=== PATIENT | female | born 1960 ===

== ENCOUNTER 2018-04-03 09:36 | Emergency (ER) | payer OTHER ==
[2018-04-03 09:53] VITALS: BMI 31.8
[2018-04-03] MEDS ORDERED: Albuterol 0.083% Inhal Sol (2.5 mg/3 mL) UD INH ONE (10:41)
--- NOTE | 2018-04-03 10:51 | ED PDOC ---
HPI: SOB/CHF/COPD History Per: Patient History/Exam Limitations: language barrier Onset/Duration Of Symptoms: Hrs Current Symptoms Are (Timing): Still Present Associated Symptoms: denies: Fever, Chills, Sweating, Chest Pain <Anais Rahman - Last Filed: 04/03/18 13:00> <Brenda Carmona Y - Last Filed: 04/03/18 17:34> Time Seen by Provider: 04/03/18 09:41 Chief Complaint (Nursing): Shortness Of Breath Additional Complaint(s): CC: SOB HPI: 57 YO Female with PMHx of reflex sympathetic dystrophy presents to [facility] ED for dyspnea. Pt states that her SOB started last night after she had a confrontation with her neighbor about her noisy nephew who was autistic. Pt states that after the episode, she became very SOB, had a hard time falling asleep last night and continues to have trouble breathing now. Denies chest pain , palpitations, cough, n/v/d/c fevers and chills. Additionally, pt endorsing hx of chronic leg pain. Persistent pain after surgery , associated redness and occasional mild swelling of the L leg, on/off since September of this year. Never used a inhaler in the past. [employer] used for translation [id number] PMD: none, recently moved from [facility] where she frequents multiple hospitals PMHx: reflex sympathetic dystrophy SurgHx: b/l knee repair SHx: denies ETOH, smoking and illicit drug use FHx: hx of Colon CA in father and Bone CA in aunt Meds: lyrica PO daily, hx of plavix use (has not been using it for months) Allergies: asa and cefzolin generalized rash (Anais Rahman) Supervising Attending Note - Supervising Attending Note The Documented history was done by the: Physician Moderate Needs Teacher The documented physical exam was done by the: Physician Moderate Needs Teacher The documented procedures were done by the: Physician Moderate Needs Teacher - Attestation: I have personally seen and examined this patient.: Yes I have fully participated in the care of the patient.: Yes I have reviewed all pertinent clinical information, including history, physical exam and plan: Yes <Brenda Carmona Y - Last Filed: 04/03/18 17:34> Past Medical History - Surgical History Other surgeries: other: b/l knee repair - Family History Family History: States: Other Other Family History: Bone and colon CA - Social History Current smoker - smoking cessation education provided: No Alcohol: None Drugs: Denies <Anais Rahman - Last Filed: 04/03/18 13:00> <Brenda Carmona Y - Last Filed: 04/03/18 17:34> Vital Signs: Last Vital Signs Temp 98.1 F 04/03/18 12:48 Pulse 75 04/03/18 12:48 Resp 16 04/03/18 12:48 BP 135/80 04/03/18 12:48 Pulse Ox 97 04/03/18 13:01 - Allergies Allergies/Adverse Reactions: Allergies Allergy/AdvReac Type Severity Reaction Status Date / Time aspirin Allergy REDNESS Verified 04/03/18 10:06 cefazolin Allergy ITCHING Verified 04/03/18 10:06 Curb-65 Severity Score - CURB-65 Severity Score Confusion: No Bun >19mg/dl (>7mmol/L): No Respiratory Rate greater than/equal to 30: No Systolic BP <90 or Diastolic BP less than/equal 60mmHg: No Age >64: No Curb-65 Score: 0 Percentage 30-day mortality: 0.6% <Anais Rahman - Last Filed: 04/03/18 13:00> Wells Criteria for PE - Wells Criteria for Pulmonary Embolism Clinical Signs and Symptoms of DVT: No P.E is #1 Diagnosis, or Equally Likely: No Heart Rate >100: No Immobilization at least 3 days;Surgery previous 4 weeks: No Previous, objectively diagnosed PE or DVT: No Hemoptysis: No Malignancy w/treatment within 6 months, or palliative: No Total Score: 0 <Anais Rahman Last Filed: 04/03/18 13:00> Review of Systems Constitutional: Negative for: Fever, Chills, Weakness Cardiovascular: Negative for: Chest Pain, Palpitations Respiratory: Positive for: Shortness of Breath. Negative for: Cough Gastrointestinal: Negative for: Nausea, Vomiting, Abdominal Pain Genitourinary Female: Negative for: Dysuria, Hematuria Musculoskeletal: Positive for: Leg Pain (R leg pain, chronic per pt) <Anais Rahman Last Filed: 04/03/18 13:00> Physical Exam - Physical Exam Appears: Positive for: No Acute Distress (breathing comfortably ) Skin: Positive for: Normal Color. Negative for: Diaphoresis ENT: Positive for: Nasal Congestion Cardiovascular/Chest: Positive for: Regular Rate, Rhythm. Negative for: Murmur Respiratory: Positive for: Normal Breath Sounds. Negative for: Crackles, Rales , Wheezing Gastrointestinal/Abdominal: Positive for: Normal Exam, Soft. Negative for: Tenderness Back: Positive for: Normal Inspection. Negative for: L CVA Tenderness, R CVA Tenderness Extremity: Positive for: Normal ROM, Tenderness (+tenderness to palpation of the lateral L leg, area of erythema, normal skin temp, old surgery scars noted, well healed.). Negative for: Pedal Edema, Calf Tenderness Neurologic/Psych: Positive for: Alert, rheumatology nurse II-XII, Oriented <Anais Rahamn - Last Filed: 04/03/18 13:00> - Laboratory Results Result Diagrams: 04/03/18 11:00 04/03/18 10:56 - ECG O2 Sat by Pulse Oximetry: 97 <Anais Rahman - Last Filed: 04/03/18 13:00> - Laboratory Results Result Diagrams: 04/03/18 11:00 04/03/18 10:56 <Brenda Carmona Y - Last Filed: 04/03/18 17:34> - Progress ED Course And Treament: 57 YO with dyspnea. VS stable breathing comfortably in room air. -cbc, bmp -CXR -XR of the L tib fib -1x duonab inh 11:58--pt seen and reevaluated Refused XR of the Leg, my leg has been the same for months, my other doctor told me I don't need any Xray's or treatment for it. States that her dyspnea has improved after breathing treatment Blood work and CXR reviewed with patient, normal Pt encouraged to get a PMD since she moved to [place] so she can follow up for her chronic conditions. Information provided for [facility] Will d/c pt to home with follow up with PMD of choice ER precautions reviewed with patient. Pt encouraged to take her PO meds as prescribed Pt agrees with plan (Anais Rahman) Disposition - Disposition Disposition Time: 13:01 <Anais Rahman - Last Filed: 04/03/18 13:00> <Brenda Carmona - Last Filed: 04/03/18 17:34> - Clinical Impression Clinical Impression: Nasal congestion - Disposition Referrals: [facility] [Outside] [facility] [Outside] Condition: IMPROVED Additional Instructions: follow up with the clinic within one week return to the ED with any worsening or concerning symptoms Instructions: Cough, Runny Nose, and the Common Cold (DC) Forms: [employer] (Surinamese)
[2018-04-03] MEDS ORDERED: Albuterol 0.083% Inhal Sol (2.5 mg/3 mL) UD ONE (11:01)
[2018-04-03 11:16] LABS: BASO % 0.5 % (0.0-2.0); EOS # 0.1 K/uL (0.0-0.7); EOS % 1.1 % (0.0-4.0); HEMOGLOBIN 12.4 g/dL (12.0-16.0); LYMPH # 1.6 K/uL (1.0-4.3); LYMPH % 28.2 % (20.0-40.0); MEAN CELL VOLUME 97.1 fl (81.0-99.0); MEAN CORPUSCULAR HEMOGLOBIN 32.6 pg (27.0-31.0); MEAN CORPUSCULAR HGB CONC 33.5 g/dL (33.0-37.0); MEAN PLATELET VOLUME 10.8 fl (7.2-11.7); MONO # 0.6 K/uL (0.0-0.8); MONO % 9.9 % (0.0-10.0); NEUT # 3.4 K/uL (1.8-7.0); NEUT % 60.3 % (50.0-75.0); NRBC % 0.2 % (0.0-0.0); RBC 3.79 Mil/uL (3.80-5.20); RED CELL DISTRIBUTION WIDTH 13.5 % (11.5-14.5); WHITE BLOOD COUNT 5.7 K/uL (4.8-10.8)
--- NOTE | 2018-04-03 11:19 | RAD ---
Date of service: 04/03/2018 HISTORY: Shortness of breath COMPARISON: No prior. FINDINGS: LUNGS: The lungs are well inflated and clear. PLEURA: No significant pleural effusion identified, no pneumothorax apparent. CARDIOVASCULAR: Normal. OSSEOUS STRUCTURES: No significant abnormalities. VISUALIZED UPPER ABDOMEN: Normal. OTHER FINDINGS: None. IMPRESSION: No active pulmonary disease.
[2018-04-03 11:34] LABS: ALB/GLOB RATIO 1.3 (1.0-2.1); ALBUMIN 3.9 g/dL (3.5-5.0); ALT/SGPT 23 U/L (9-52); AST/SGOT 30 U/L (14-36); BLOOD UREA NITROGEN 10 mg/dl (7-17); GFR NON-AFRICAN AMERICAN > 60
[2018-04-03 12:49] VITALS: BP 135/80; PULSE 75; RESP 16; TEMP 98.1
[2018-04-03 12:51] VITALS: O2SAT 97
== END 2018-04-03 12:56 | disposition home or self-care (01) ==
LOC: H.ER 09:36
DX: R09.81 Nasal congestion (principal); R06.02 Shortness of breath; G90.50 Complex regional pain syndrome I, unspecified; Z88.1 Allergy status to other antibiotic agents

== ENCOUNTER 2018-08-17 12:17 | Inpatient (IN) | payer MEDICAID, OTHER ==
[2018-08-17 12:17] VITALS: BMI 31.8
[2018-08-17 14:27] LABS: BASO % 0.2 % (0.0-2.0); EOS % 0.1 % (0.0-4.0); HEMOGLOBIN 12.9 g/dL (12.0-16.0); LYMPH # 0.9 K/uL (1.0-4.3); LYMPH % 12.5 % (20.0-40.0); MEAN CELL VOLUME 97.3 fl (81.0-99.0); MEAN CORPUSCULAR HEMOGLOBIN 31.7 pg (27.0-31.0); MEAN CORPUSCULAR HGB CONC 32.5 g/dL (33.0-37.0); MEAN PLATELET VOLUME 11.1 fl (7.2-11.7); MONO # 0.6 K/uL (0.0-0.8); NEUT # 5.7 K/uL (1.8-7.0); NEUT % 79.2 % (50.0-75.0); RBC 4.07 Mil/uL (3.80-5.20); RED CELL DISTRIBUTION WIDTH 13.4 % (11.5-14.5); WHITE BLOOD COUNT 7.2 K/uL (4.8-10.8)
[2018-08-17 14:37] LABS: ALB/GLOB RATIO 1.1 (1.0-2.1); ALBUMIN 4.2 g/dL (3.5-5.0); ALT/SGPT 296 U/L (9-52); AST/SGOT 517 U/L (14-36); BLOOD UREA NITROGEN 10 mg/dl (7-17); GFR NON-AFRICAN AMERICAN > 60
--- NOTE | 2018-08-17 14:47 | ED PDOC ---
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 Patient states she has had the pain intermittently x6 months, and with this flare, she reports 2 episodes of associated non-bloody non-bilious vomiting. This morning patient reports the pain began to radiate her back and was described as a sharp 9/10 pain. She denies taking medications prior to arrival. Patient denies fever, diarrhea, urinary symptoms, hematuria, flank pain, chest pain, shortness of breath, or cough. pmd: none Past Medical History Reviewed: Historical Data, Nursing Documentation, Vital Signs Vital Signs: Last Vital Signs Temp 97.6 F 08/17/18 12:42 Pulse 71 08/17/18 12:42 Resp 16 08/17/18 12:42 BP 140/76 08/17/18 12:42 Pulse Ox 99 08/17/18 12:42 - Medical History Other PMH: Unspecified Dystrophy - Surgical History Other surgeries: Left leg surgery (13 y/o) - Family History Family History: States: Unknown Family Hx - Social History Current smoker - smoking cessation education provided: No Alcohol: None - Home Medications Home Medications: Ambulatory Orders Medication Instructions Recorded Clopidogrel [Plavix] 75 mg PO DAILY 08/17/18 Pregabalin [Lyrica] 75 mg PO BID 08/17/18 RX: Pamabrom [Diuretic Softgel] 50 mg PO Q6 PRN 08/17/18 Ciprofloxacin HCl [Cipro] 500 mg PO Q12H 10 Days #20 tab 08/18/18 - Allergies Allergies/Adverse Reactions: Allergies Allergy/AdvReac Type Severity Reaction Status Date / Time aspirin Allergy REDNESS Verified 04/03/18 10:06 cefazolin Allergy ITCHING Verified 04/03/18 10:06 Review of Systems ROS Statement: Except As Marked, All Systems Reviewed And Found Negative Constitutional: Negative for: Fever Cardiovascular: Negative for: Chest Pain Respiratory: Negative for: Cough, Shortness of Breath Gastrointestinal: Positive for: Vomiting, Abdominal Pain. Negative for: Diarrhea Genitourinary Female: Negative for: Dysuria, Frequency, Incontinence, Hematuria Musculoskeletal: Positive for: Back Pain Physical Exam - Reviewed Nursing Documentation Reviewed: Yes Vital Signs Reviewed: Yes - Physical Exam Comments: GENERAL APPEARANCE: Patient is awake, alert, oriented x 3, in no distress. SKIN: Warm, dry; (-) cyanosis. EYES: (-) conjunctival pallor, (-) scleral icterus. ENMT: Mucous membranes moist. NECK: Supple, FROM CHEST AND RESPIRATORY: (-) rales, (-) rhonchi, (-) wheezes; breath sounds equal bilaterally. Respirations nonlabored. HEART AND CARDIOVASCULAR: (-) irregularity ABDOMEN AND GI: Soft (-) distention. Bowel sounds active x4; (+) mild tenderness in epigastric region (-) guarding, (-) rebound, (-) palpable masses, (-) CVA tenderness. NEURO AND PSYCH: Mental status as above; (-) focal findings. Gait: steady with walker. Speech: clear. (-) facial asymmetry - Laboratory Results Result Diagrams: 08/18/18 05:55 08/18/18 05:55 Lab Results: Total Bilirubin 2.2 mg/dl (0.2-1.3) H 08/17/18 14:15 AST 517 U/L (14-36) H D 08/17/18 14:15 ALT 296 U/L (9-52) H D 08/17/18 14:15 Alkaline Phosphatase 238 U/L (38-126) H D 08/17/18 14:15 Total Protein 8.0 G/DL (6.3-8.2) 08/17/18 14:15 Albumin 4.2 g/dL (3.5-5.0) 08/17/18 14:15 Globulin 3.8 gm/dL (2.2-3.9) 08/17/18 14:15 Albumin/Globulin Ratio 1.1 (1.0-2.1) 08/17/18 14:15 Urine dip results: Positive for: Leukocyte Esterase (small). Negative for: Blood, Nitrate, Ketones, Glucose, Bilirubin, Protein - ECG O2 Sat by Pulse Oximetry: 99 (RA) Pulse Ox Interpretation: Normal Medical Decision Making Medical Decision Making: Time: 13:45 Impression: Abdominal pain and vomiting Initial Plan: * CMP * Drug screen * Lipase * CBC w/ diff * Pepcid 20 mg * Acetaminophen 650 mg * Zofran 4 mg 1505 Patient sleeping comfortably on re-evaluation. No distress noted. 1600 Utox: negative CBC grossly unremarkable. CMP with elevation of LFTs. Lipase pending. Patient remains asleep comfortably in ED. 1620 Udip reviewed. U/A and U/C ordered. 165 Lipase: LDH, coag profile, and lactic acid ordered. U/S gallbladder ordered. 1L NS ordered. 1740 Patient in U/S. 184 US Abdomen report follows FINDINGS: LIVER: Within normal limits in size and echogenicity. No mass. GALLBLADDER: Small gallstones are present with evidence of mild thickening and edema of the gallbladder wall. COMMON BILE DUCT: Within normal limits in size. PANCREAS: The visualized pancreas appears within normal limits. The distal pancreas is obscured by bowel gas. RIGHT KIDNEY: Unremarkable. Normal renal contours. No renal mass or calculus. No hydronephrosis. IMPRESSION: Multiple small gallstones. Thickening and edema of the gallbladder wall suggested. Technically limited study. Close clinical correlation is advised. 1920 Case discussed with hospitalist, Dr Felix, who is agreeable to admission for pancreatitis and gallstones. Zosyn ordered. No elevation of lactic acid. (+) elevation of LDH Patient agreeable to admission. Daughter now at bedside. ED MD Riggins discussed case with Trina Vuong PA-C on behalf of Dr Rico, general surgery. ED MD Riggins discussed case Dr Brandon, GI fashion adviser. Scribe Attestation: Documented by Richard Calle, acting as a scribe for Dina Barcenas PA-C Provider Scribe Attestation: :All medical record entries made by the Scribe were at my direction and personally dictated by me. I have reviewed the chart and agree that the record accurately reflects my personal performance of the history, physical exam, medical decision making, and the department course for this patient. I have also personally directed, reviewed, and agree with the discharge instructions and disposition. Disposition - Clinical Impression Clinical Impression: Abdominal pain, Vomiting, Pancreatitis, Gallstones - Patient ED Disposition Is Patient to be Admitted: Yes Discussed With DrFelicitas: Carey Felix Doctor Will See Patient In The: Hospital Counseled Patient/Family Regarding: Studies Performed, Diagnosis - Disposition Disposition Time: 19:20 Condition: STABLE - Pt Status Changed To: Hospital Disposition Of: Inpatient - Admit Certification Admit to Inpatient:: After my assessment, the patient will require hospitalization for at least two midnights. This is because of the severity of symptoms shown, intensity of services needed, and/or the medical risk in this patient being treated as an outpatient. - POA Present On Arrival: None Results - Lab Results Lab Results: 08/17/18 08/17/18 08/17/18 17:26 17:26 17:26 WBC RBC Hgb Hct MCV MCH MCHC RDW Plt Count MPV Neut % (Auto) Lymph % (Auto) Sierra % (Auto) Eos % (Auto) Baso % (Auto) Neut # (Auto) Lymph # (Auto) Sierra # (Auto) Eos # (Auto) Baso # (Auto) PT 11.2 INR 1.0 APTT 31.4 Sodium Potassium Chloride Carbon Dioxide Anion Gap BUN Creatinine Est GFR ( Amer) Est GFR (Non-Af Amer) Random Glucose Lactic Acid 0.7 Calcium Total Bilirubin AST ALT Alkaline Phosphatase Lactate Dehydrogenase 1347 H Total Protein Albumin Globulin Albumin/Globulin Ratio Lipase 55990 H Urine Color Urine Clarity Urine pH Ur Specific [place] Urine Protein Urine Glucose (UA) Urine Ketones Urine Blood Urine Nitrate Urine Bilirubin Urine Urobilinogen Ur Leukocyte Esterase Urine RBC (Auto) Urine Microscopic WBC Ur Squamous Epith Cells Urine Bacteria Urine Opiates Screen Urine Methadone Screen Ur Barbiturates Screen Ur Phencyclidine Scrn Ur Amphetamines Screen U Benzodiazepines Scrn U Oth Cocaine Metabols U Cannabinoids Screen 08/17/18 08/17/18 08/17/18 17:10 14:49 14:15 WBC RBC Hgb Hct MCV MCH MCHC RDW Plt Count MPV Neut % (Auto) Lymph % (Auto) Sierra % (Auto) Eos % (Auto) Baso % (Auto) Neut # (Auto) Lymph # (Auto) Sierra # (Auto) Eos # (Auto) Baso # (Auto) PT INR APTT Sodium 136 Potassium 3.6 Chloride 101 Carbon Dioxide 26 Anion Gap 13 BUN 10 Creatinine 0.7 Est GFR ( Amer) > 60 Est GFR (Non-Af Amer) > 60 Random Glucose 102 Lactic Acid Calcium 9.0 Total Bilirubin 2.2 H AST 517 H D ALT 296 H D Alkaline Phosphatase 238 H D Lactate Dehydrogenase Total Protein 8.0 Albumin 4.2 Globulin 3.8 Albumin/Globulin Ratio 1.1 Lipase 70933 H Urine Color Yellow Urine Clarity Slighty-cloudy Urine pH 7.0 Ur Specific [place] < 1.005 Urine Protein Negative Urine Glucose (UA) Neg Urine Ketones Negative Urine Blood Small Urine Nitrate Negative Urine Bilirubin Negative Urine Urobilinogen 0.2-1.0 Ur Leukocyte Esterase Small Urine RBC (Auto) 4 H Urine Microscopic WBC 6 H Ur Squamous Epith Cells < 1 Urine Bacteria Rare Urine Opiates Screen Negative Urine Methadone Screen Negative Ur Barbiturates Screen Negative Ur Phencyclidine Scrn Negative Ur Amphetamines Screen Negative U Benzodiazepines Scrn Negative U Oth Cocaine Metabols Negative U Cannabinoids Screen Negative 08/17/18 14:15 WBC 7.2 RBC 4.07 Hgb 12.9 Hct 39.6 MCV 97.3 MCH 31.7 H MCHC 32.5 L RDW 13.4 Plt Count 184 MPV 11.1 Neut % (Auto) 79.2 H Lymph % (Auto) 12.5 L Sierra % (Auto) 8.0 Eos % (Auto) 0.1 Baso % (Auto) 0.2 Neut # (Auto) 5.7 Lymph # (Auto) 0.9 L Sierra # (Auto) 0.6 Eos # (Auto) 0.0 Baso # (Auto) 0.0 PT INR APTT Sodium Potassium Chloride Carbon Dioxide Anion Gap BUN Creatinine Est GFR ( Amer) Est GFR (Non-Af Amer) Random Glucose Lactic Acid Calcium Total Bilirubin AST ALT Alkaline Phosphatase Lactate Dehydrogenase Total Protein Albumin Globulin Albumin/Globulin Ratio Lipase Urine Color Urine Clarity Urine pH Ur Specific [place] Urine Protein Urine Glucose (UA) Urine Ketones Urine Blood Urine Nitrate Urine Bilirubin Urine Urobilinogen Ur Leukocyte Esterase Urine RBC (Auto) Urine Microscopic WBC Ur Squamous Epith Cells Urine Bacteria Urine Opiates Screen Urine Methadone Screen Ur Barbiturates Screen Ur Phencyclidine Scrn Ur Amphetamines Screen U Benzodiazepines Scrn U Oth Cocaine Metabols U Cannabinoids Screen
[2018-08-17 16:02] LABS: BARBITURATES, UR NEGATIVE (NEGATIVE); BENZODIAZEPINES, UR NEGATIVE (NEGATIVE); OPIATES, UR NEGATIVE (NEGATIVE); PHENCYCLIDINE, UR NEGATIVE (NEGATIVE)
[2018-08-17 16:38] LABS: LIPASE 19526 U/L (23-300)
[2018-08-17] MEDS ORDERED: Sodium Chloride 0.9% 1,000 ML IV STA (16:50)
[2018-08-17 17:30] LABS: SQUAMOUS EPITHIAL < 1 /hpf (0-5); URINE BACTERIA RARE (<OCC); URINE BILIRUBIN NEGATIVE (NEGATIVE); URINE BLOOD SMALL (NEGATIVE); URINE CLARITY SLIGHTY-CLOUDY (Clear); URINE COLOR YELLOW (YELLOW); URINE GLUCOSE (UA) NEG (NEGATIVE); URINE LEUKOCYTE ESTERASE SMALL Leu/uL (Negative); URINE PROTEIN NEGATIVE (NEGATIVE); URINE UROBILINOGEN 0.2-1.0 mg/dL (0.2-1.0)
[2018-08-17 18:06] LABS: PROTHROMBIN TIME 11.2 Seconds (9.8-13.1)
[2018-08-17 18:08] LABS: PARTIAL THROMBOPLASTIN TIME 31.4 Seconds (25.6-37.1)
[2018-08-17 18:24] LABS: LIPASE 10537 U/L (23-300)
[2018-08-17] MEDS ORDERED: Piperacillin/Tazobact 3.375 GM in Sodium Chloride 0.9% 100 ML IVPB STA (19:20)
[2018-08-17] MEDS ORDERED: Lactated Ringer's 1,000 ML IV STA (19:45)
[2018-08-17] MEDS ORDERED: Piperacillin/Tazobact 3.375 gm Inj IVPB ONE (19:48)
--- NOTE | 2018-08-17 20:41 | CP.PCM.HP ---
<William Ahuja - Last Filed: 08/17/18 20:56> History of Present Illness - History of Present Illness History of Present Illness: 57 y/o F with a PMHx of GERD presented to ED complaining of upper abdominal pain that began last night. Pain is described as sharp, 9/10 intensity, radiates nabila und abdomen bilaterally to back. Pt explains that pain started last night after eating rice and beans for dinner, then she felt nauseous, had a NBNB vomiting episode around 3 am which relieved the pain. Pt woke up this morning, ate crackers and pain exacerbated again and vomited again but with NO improvement of pain. No ill contacts and no eating outdoors. --Pt reports 3-4 similar episode over the past 6 months in which pain was exacerbated by food and relieved after NBNB vomiting. --Pt denies fever, chills, dizziness, cough, cehst pain, SOB, diarrhea, constipation or rash. PCP: Derick Booth/Dr Robe Smith Allergies: Aspirin and Cefazolin (Rash) Meds: Lyrica 75mg BID, Clopidogrel 75mg daily. -PMHx: GERD, left leg neuropathic pain/Complex Regional Pain Syndrome (diagnosed in [facility] a few years ago), Left lower leg DVT after immobilization s/p L ankle fracture. -PSHx: Bilateral tibia and fibular surgical correction, unspecified (?ORIF). Left ankle ORIF. -FHx: Father of Colon Cancer at age 73. Mother is alive and healthy. -SHx: Never smoker, no alcohol and no rec drugs. At ED: --Vital signs: WNL --CBC: unremarkable; CMP showed elevated bilirubin, increased AST/ALT, elevated Alk phos. --Serum LDH 1,347-high --Lipase 19,526-high, and to 10,537 3 hours after treatment. --US Abdomen: multiple small gallstones, thickening and edema of the gallbladder wall, pancreas WNL but distal pancreas was not visualized. Present on Admission - Present on Admission Any Indicators Present on Admission: Yes History of DVT/PE: Yes History of Uncontrolled Diabetes: No Urinary Catheter: No Decubitus Ulcer Present: No Review of Systems - Constitutional Constitutional: absent: Chills, Fever, Lethargy, Malaise - Cardiovascular Cardiovascular: absent: Chest Pain, Dyspnea, Orthopnea - Respiratory Respiratory: absent: Cough, Dyspnea, Hemoptysis - Gastrointestinal Gastrointestinal: Abdominal Pain, Nausea, Vomiting. absent: Constipation, Diarrhea, Hematemesis, Hematochezia Past Patient History - Past Social History Alcohol: None - NEUROLOGICAL Hx Neurological Disorder: Yes Other/Comment: Reflex sympathetic dystrophy - ENDOCRINE/METABOLIC Other/Comment: hypoglycemia - PSYCHIATRIC Hx Substance Use: No - SURGICAL HISTORY Hx Surgeries: Yes Hx Orthopedic Surgery: Yes (lt. leg) - ANESTHESIA Hx Anesthesia: Yes Hx Anesthesia Reactions: No Meds Allergies/Adverse Reactions: Allergies Allergy/AdvReac Type Severity Reaction Status Date / Time aspirin Allergy REDNESS Verified 04/03/18 10:06 cefazolin Allergy ITCHING Verified 04/03/18 10:06 Physical Exam - Constitutional Appears: No Acute Distress - Head Exam Head Exam: ATRAUMATIC, NORMAL INSPECTION - Eye Exam Eye Exam: EOMI - ENT Exam ENT Exam: Mucous Membranes Moist - Neck Exam Neck exam: Positive for: Full Rom, Normal Inspection - Respiratory Exam Respiratory Exam: NORMAL BREATHING PATTERN. absent: Rhonchi, Wheezes, Respiratory Distress - Cardiovascular Exam Cardiovascular Exam: REGULAR RHYTHM, +S1, +S2 - GI/Abdominal Exam GI & Abdominal Exam: Normal Bowel Sounds, Soft, Tenderness (epigastric and aaron- umbilical areas). absent: Distended, Guarding, Rebound, Rigid Additional comments: Negative Bell's after distraction - Extremities Exam Extremities exam: Positive for: full ROM, tenderness (on Left lower leg, superior and lateral to ankle. ), pedal pulses present. Negative for: calf tenderness, normal inspection (skin color changes on Left lower leg, possibly venous stasis. ), pedal edema Results - Vital Signs Recent Vital Signs: Last Vital Signs Temp 97.4 F L 08/17/18 20:05 Pulse 62 08/17/18 20:05 Resp 16 08/17/18 20:05 BP 142/85 08/17/18 20:05 Pulse Ox 95 08/17/18 20:05 - Labs Result Diagrams: 08/17/18 14:15 08/17/18 14:15 Labs: Laboratory Results - last 24 hr 08/17/18 08/17/18 08/17/18 14:15 14:15 14:49 WBC 7.2 RBC 4.07 Hgb 12.9 Hct 39.6 MCV 97.3 MCH 31.7 H MCHC 32.5 L RDW 13.4 Plt Count 184 MPV 11.1 Neut % (Auto) 79.2 H Lymph % (Auto) 12.5 L [place] % (Auto) 8.0 Eos % (Auto) 0.1 Baso % (Auto) 0.2 Neut # (Auto) 5.7 Lymph # (Auto) 0.9 L [place] # (Auto) 0.6 Eos # (Auto) 0.0 Baso # (Auto) 0.0 PT INR APTT Sodium 136 Potassium 3.6 Chloride 101 Carbon Dioxide 26 Anion Gap 13 BUN 10 Creatinine 0.7 Est GFR ( Amer) > 60 Est GFR (Non-Af Amer) > 60 Random Glucose 102 Lactic Acid Calcium 9.0 Total Bilirubin 2.2 H AST 517 H D ALT 296 H D Alkaline Phosphatase 238 H D Lactate Dehydrogenase Total Protein 8.0 Albumin 4.2 Globulin 3.8 Albumin/Globulin Ratio 1.1 Lipase 25730 H Urine Color Urine Clarity Urine pH Ur Specific [place] Urine Protein Urine Glucose (UA) Urine Ketones Urine Blood Urine Nitrate Urine Bilirubin Urine Urobilinogen Ur Leukocyte Esterase Urine RBC (Auto) Urine Microscopic WBC Ur Squamous Epith Cells Urine Bacteria Urine Opiates Screen Negative Urine Methadone Screen Negative Ur Barbiturates Screen Negative Ur Phencyclidine Scrn Negative Ur Amphetamines Screen Negative U Benzodiazepines Scrn Negative U Oth Cocaine Metabols Negative U Cannabinoids Screen Negative 08/17/18 08/17/18 08/17/18 17:10 17:26 17:26 WBC RBC Hgb Hct MCV MCH MCHC RDW Plt Count MPV Neut % (Auto) Lymph % (Auto) [place] % (Auto) Eos % (Auto) Baso % (Auto) Neut # (Auto) Lymph # (Auto) [place] # (Auto) Eos # (Auto) Baso # (Auto) PT INR APTT Sodium Potassium Chloride Carbon Dioxide Anion Gap BUN Creatinine Est GFR ( Amer) Est GFR (Non-Af Amer) Random Glucose Lactic Acid 0.7 Calcium Total Bilirubin AST ALT Alkaline Phosphatase Lactate Dehydrogenase 1347 H Total Protein Albumin Globulin Albumin/Globulin Ratio Lipase 02643 H Urine Color Yellow Urine Clarity Slighty-cloudy Urine pH 7.0 Ur Specific [place] < 1.005 Urine Protein Negative Urine Glucose (UA) Neg Urine Ketones Negative Urine Blood Small Urine Nitrate Negative Urine Bilirubin Negative Urine Urobilinogen 0.2-1.0 Ur Leukocyte Esterase Small Urine RBC (Auto) 4 H Urine Microscopic WBC 6 H Ur Squamous Epith Cells < 1 Urine Bacteria Rare Urine Opiates Screen Urine Methadone Screen Ur Barbiturates Screen Ur Phencyclidine Scrn Ur Amphetamines Screen U Benzodiazepines Scrn U Oth Cocaine Metabols U Cannabinoids Screen 08/17/18 17:26 WBC RBC Hgb Hct MCV MCH MCHC RDW Plt Count MPV Neut % (Auto) Lymph % (Auto) [place] % (Auto) Eos % (Auto) Baso % (Auto) Neut # (Auto) Lymph # (Auto) [place] # (Auto) Eos # (Auto) Baso # (Auto) PT 11.2 INR 1.0 APTT 31.4 Sodium Potassium Chloride Carbon Dioxide Anion Gap BUN Creatinine Est GFR ( Amer) Est GFR (Non-Af Amer) Random Glucose Lactic Acid Calcium Total Bilirubin AST ALT Alkaline Phosphatase Lactate Dehydrogenase Total Protein Albumin Globulin Albumin/Globulin Ratio Lipase Urine Color Urine Clarity Urine pH Ur Specific [place] Urine Protein Urine Glucose (UA) Urine Ketones Urine Blood Urine Nitrate Urine Bilirubin Urine Urobilinogen Ur Leukocyte Esterase Urine RBC (Auto) Urine Microscopic WBC Ur Squamous Epith Cells Urine Bacteria Urine Opiates Screen Urine Methadone Screen Ur Barbiturates Screen Ur Phencyclidine Scrn Ur Amphetamines Screen U Benzodiazepines Scrn U Oth Cocaine Metabols U Cannabinoids Screen Assessment & Plan - Assessment and Plan (Free Text) Assessment: 57 y/o F with a PMHx of DVT, GERD and Complex Regional Pain Syndrome was admitted for evaluation and management of cholecystitis, cholelithiasis and pancreatitis. PLAN: >Pancreatitis/Cholelithiasis/Cholecystitis --US Abdomen: multiple small gallstones, thickening and edema of the gallbladder wall, pancreas WNL but distal pancreas was not visualized. --NPO --IV fluids: LR at 250mL.hr --Pain management: IV Toradol 30mg for severe pain, 15mg for moderate pain. --GI consult, Dr Brandon --Gen Surgery, Dr Rico. --Will hold PO medications due to possible procedure F/U Gen Surgery recommendations. --F/U AM labs. >Complex Regional Pain Syndrome/Chronic left lower leg pain --Hold PO home meds due to possible procedure. --Lidoderm topical daily >Hx of provoked DVT --Hold PO Plavix due to possibility of surgery. >DVT Prophylaxis --SCD on R leg only due to left lower leg pain --Hold anticoagulants due to possible procedure. Discussed with Dr Felix, hospitalist Perla PGY-2 - Date & Time Date: 08/17/18 Time: 19:45 <Carey Felix - Last Filed: 08/18/18 17:56> Results - Vital Signs Recent Vital Signs: Last Vital Signs Temp 97.1 F L 08/18/18 17:00 Pulse 63 08/18/18 17:00 Resp 18 08/18/18 17:00 BP 130/80 08/18/18 17:00 Pulse Ox 98 08/18/18 17:00 - Labs Result Diagrams: 08/18/18 05:55 08/18/18 05:55 Labs: Laboratory Results - last 24 hr 08/17/18 08/17/18 08/17/18 17:26 17:26 17:26 WBC RBC Hgb Hct MCV MCH MCHC RDW Plt Count PT 11.2 INR 1.0 APTT 31.4 Sodium Potassium Chloride Carbon Dioxide Anion Gap BUN Creatinine Est GFR ( Amer) Est GFR (Non-Af Amer) Random Glucose Lactic Acid 0.7 Calcium Total Bilirubin AST ALT Alkaline Phosphatase Lactate Dehydrogenase 1347 H Total Protein Albumin Globulin Albumin/Globulin Ratio Triglycerides Cholesterol LDL Cholesterol Direct HDL Cholesterol Lipase 36042 H 08/18/18 08/18/18 08/18/18 05:55 05:55 05:55 WBC 5.4 RBC 3.89 Hgb 12.5 Hct 38.0 MCV 97.6 MCH 32.0 H MCHC 32.8 L RDW 13.7 Plt Count 169 PT INR APTT Sodium 138 Potassium 3.6 Chloride 103 Carbon Dioxide 24 Anion Gap 15 BUN 7 Creatinine 0.7 Est GFR ( Amer) > 60 Est GFR (Non-Af Amer) > 60 Random Glucose 86 Lactic Acid Calcium 8.8 Total Bilirubin 2.1 H AST 256 H D ALT 226 H D Alkaline Phosphatase 284 H Lactate Dehydrogenase Total Protein 7.1 Albumin 3.7 Globulin 3.4 Albumin/Globulin Ratio 1.1 Triglycerides 68 Cholesterol 145 LDL Cholesterol Direct 66 HDL Cholesterol 56 Lipase 6701 H Attending/Attestation - Attestation I have personally seen and examined this patient.: Yes I have fully participated in the care of the patient.: Yes I have reviewed all pertinent clinical information: Yes
--- NOTE | 2018-08-17 20:51 | CP.PCM.CON ---
<Johanna Dominique - Last Filed: 08/17/18 21:07> History of Present Illness - History of Present Illness History of Present Illness: General surgery consult note for Dr. Rico Consulted for: gallstone pancreatitis Patient is a 57F with PMH of DVT d/t leg surgery for which she takes daily plavi x who presented to the ED for 1 day of worsening epigastric and RUQ pain radiating to the mid back with nausea and vomiting 1 time non-bilious, non- bloody emesis at 3 AM. Patient states that she has had mild postpriandial epigastric pain and GERD symptoms off and on for the past 6 months but denies any association with fatty foods. Patient denies any current nausea or vomiting, had a 3 regular bowel movement yesterday, denies any melena, hematochezia, diarrhea, fevers, chills, chest pain, or SOB. Does admit to chronic intermittent bouts of tachycardia that has not been worked up. Patient's lipase, bilirubin, and LFT's were elevated and she was found to have gallstones and mild gallbladder wall edema on US, with CBD 5.4mm. Explained patient's diagnosis and plan for MRCP, GI consult, and possible cholecystectomy with patient and patient's daughter at bedside and patient expressed resistance to surgery d/t negative experiences with her leg surgeries in the past. Thoroughly explained the reason for the recommendation and the risk of subsequent episodes of gallstone pancreatitis with patient and the daughter but patient became too distressed to continue the conversation. Will continue to discuss with patient and family at a later time. PMH: reflex sympathetic dystrophy, DVT PSH: multiple surgeries to left lower leg, BL knee surgery--denies any metal implants ALL: ASA, cefazolin Social: denies ETOH, tobacco, or drugs Review of Systems - Review of Systems All systems: reviewed and no additional remarkable complaints except (as per HPI) Past Patient History - Past Medical History & Family History Past Medical History?: Yes Past Family History: Reviewed and not pertinent - Past Social History Smoking Status: Never Smoked Alcohol: None Drugs: Denies - NEUROLOGICAL Hx Neurological Disorder: Yes Other/Comment: Reflex sympathetic dystrophy - ENDOCRINE/METABOLIC Other/Comment: hypoglycemia - HEMATOLOGICAL/ONCOLOGICAL Other/Comment: DVT - PSYCHIATRIC Hx Substance Use: No - SURGICAL HISTORY Hx Surgeries: Yes Hx Orthopedic Surgery: Yes (lt. lower leg, BL knees) - ANESTHESIA Hx Anesthesia: Yes Hx Anesthesia Reactions: No Meds Allergies/Adverse Reactions: Allergies Allergy/AdvReac Type Severity Reaction Status Date / Time aspirin Allergy REDNESS Verified 04/03/18 10:06 cefazolin Allergy ITCHING Verified 04/03/18 10:06 - Medications Medications: Current Medications Famotidine (Pepcid) 20 mg PO BID [facility] Lactated Ringer's (Lactated Ringer's) 1,000 mls @ 250 mls/hr IV .Q4H [facility] Ketorolac Tromethamine (Toradol) 30 mg IVP Q6 PRN PRN Reason: Pain, severe (8-10) Ketorolac Tromethamine (Toradol) 15 mg IVP Q6 PRN PRN Reason: Pain, moderate (4-7) Lidocaine (Lidoderm) 1 ea TD DAILY [facility] Ondansetron HCl (Zofran Inj) 4 mg IVP Q6 PRN PRN Reason: Nausea/Vomiting Pantoprazole Sodium (Protonix Inj) 40 mg IVP DAILY [facility] Physical Exam - Constitutional Appears: Well, Non-toxic, No Acute Distress - Head Exam Head Exam: ATRAUMATIC, NORMOCEPHALIC - Eye Exam Eye Exam: Normal appearance. absent: Conjunctival injection, Scleral icterus - ENT Exam ENT Exam: Mucous Membranes Moist, Normal Oropharynx - Respiratory Exam Respiratory Exam: NORMAL BREATHING PATTERN. absent: Accessory Muscle Use, Respiratory Distress - Cardiovascular Exam Cardiovascular Exam: RRR - GI/Abdominal Exam GI & Abdominal Exam: Soft, Tenderness (epigastric and RUQ). absent: Distended, Rebound, Rigid Additional comments: negative perez's - Extremities Exam Extremities exam: Positive for: pedal pulses present. Negative for: calf tenderness, pedal edema - Neurological Exam Neurological exam: Alert, Oriented x3 - Psychiatric Exam Psychiatric exam: Anxious, Normal Affect - Skin Skin Exam: Dry, Normal Color, Warm Results - Vital Signs Recent Vital Signs: Last Vital Signs Temp 97.4 F L 08/17/18 20:05 Pulse 62 08/17/18 20:05 Resp 16 08/17/18 20:05 BP 142/85 08/17/18 20:05 Pulse Ox 95 08/17/18 20:05 - Labs Result Diagrams: 08/17/18 14:15 08/17/18 14:15 Labs: Laboratory Results - last 24 hr 08/17/18 08/17/18 08/17/18 14:15 14:15 14:49 WBC 7.2 RBC 4.07 Hgb 12.9 Hct 39.6 MCV 97.3 MCH 31.7 H MCHC 32.5 L RDW 13.4 Plt Count 184 MPV 11.1 Neut % (Auto) 79.2 H Lymph % (Auto) 12.5 L [place] % (Auto) 8.0 Eos % (Auto) 0.1 Baso % (Auto) 0.2 Neut # (Auto) 5.7 Lymph # (Auto) 0.9 L [place] # (Auto) 0.6 Eos # (Auto) 0.0 Baso # (Auto) 0.0 PT INR APTT Sodium 136 Potassium 3.6 Chloride 101 Carbon Dioxide 26 Anion Gap 13 BUN 10 Creatinine 0.7 Est GFR ( Amer) > 60 Est GFR (Non-Af Amer) > 60 Random Glucose 102 Lactic Acid Calcium 9.0 Total Bilirubin 2.2 H AST 517 H D ALT 296 H D Alkaline Phosphatase 238 H D Lactate Dehydrogenase Total Protein 8.0 Albumin 4.2 Globulin 3.8 Albumin/Globulin Ratio 1.1 Lipase 98341 H Urine Color Urine Clarity Urine pH Ur Specific [place] Urine Protein Urine Glucose (UA) Urine Ketones Urine Blood Urine Nitrate Urine Bilirubin Urine Urobilinogen Ur Leukocyte Esterase Urine RBC (Auto) Urine Microscopic WBC Ur Squamous Epith Cells Urine Bacteria Urine Opiates Screen Negative Urine Methadone Screen Negative Ur Barbiturates Screen Negative Ur Phencyclidine Scrn Negative Ur Amphetamines Screen Negative U Benzodiazepines Scrn Negative U Oth Cocaine Metabols Negative U Cannabinoids Screen Negative 08/17/18 08/17/18 08/17/18 17:10 17:26 17:26 WBC RBC Hgb Hct MCV MCH MCHC RDW Plt Count MPV Neut % (Auto) Lymph % (Auto) [place] % (Auto) Eos % (Auto) Baso % (Auto) Neut # (Auto) Lymph # (Auto) [place] # (Auto) Eos # (Auto) Baso # (Auto) PT INR APTT Sodium Potassium Chloride Carbon Dioxide Anion Gap BUN Creatinine Est GFR ( Amer) Est GFR (Non-Af Amer) Random Glucose Lactic Acid 0.7 Calcium Total Bilirubin AST ALT Alkaline Phosphatase Lactate Dehydrogenase 1347 H Total Protein Albumin Globulin Albumin/Globulin Ratio Lipase 31250 H Urine Color Yellow Urine Clarity Slighty-cloudy Urine pH 7.0 Ur Specific [place] < 1.005 Urine Protein Negative Urine Glucose (UA) Neg Urine Ketones Negative Urine Blood Small Urine Nitrate Negative Urine Bilirubin Negative Urine Urobilinogen 0.2-1.0 Ur Leukocyte Esterase Small Urine RBC (Auto) 4 H Urine Microscopic WBC 6 H Ur Squamous Epith Cells < 1 Urine Bacteria Rare Urine Opiates Screen Urine Methadone Screen Ur Barbiturates Screen Ur Phencyclidine Scrn Ur Amphetamines Screen U Benzodiazepines Scrn U Oth Cocaine Metabols U Cannabinoids Screen 08/17/18 17:26 WBC RBC Hgb Hct MCV MCH MCHC RDW Plt Count MPV Neut % (Auto) Lymph % (Auto) [place] % (Auto) Eos % (Auto) Baso % (Auto) Neut # (Auto) Lymph # (Auto) [place] # (Auto) Eos # (Auto) Baso # (Auto) PT 11.2 INR 1.0 APTT 31.4 Sodium Potassium Chloride Carbon Dioxide Anion Gap BUN Creatinine Est GFR ( Amer) Est GFR (Non-Af Amer) Random Glucose Lactic Acid Calcium Total Bilirubin AST ALT Alkaline Phosphatase Lactate Dehydrogenase Total Protein Albumin Globulin Albumin/Globulin Ratio Lipase Urine Color Urine Clarity Urine pH Ur Specific [place] Urine Protein Urine Glucose (UA) Urine Ketones Urine Blood Urine Nitrate Urine Bilirubin Urine Urobilinogen Ur Leukocyte Esterase Urine RBC (Auto) Urine Microscopic WBC Ur Squamous Epith Cells Urine Bacteria Urine Opiates Screen Urine Methadone Screen Ur Barbiturates Screen Ur Phencyclidine Scrn Ur Amphetamines Screen U Benzodiazepines Scrn U Oth Cocaine Metabols U Cannabinoids Screen Assessment & Plan - Assessment and Plan (Free Text) Assessment: 57F with gallstone pancreatitis Plan: Trend CBC and CMP MRCP Strict urine output Aggressive fluid hydration NPO IV antibiotics for cholecystitis PRN pain and nausea medication recommend re-starting patient's home neuropathic pain medication Discussed with Dr. Rico, further recs per him Johanna Dominique, PGY2 <Nicola Rico - Last Filed: 08/18/18 10:43> History of Present Illness - History of Present Illness History of Present Illness: Patient was seen and examined at the bedside. Agree with resident's note above. Meds - Medications Medications: Current Medications Enoxaparin Sodium (Lovenox) 40 mg SC DAILY [facility]; Protocol Famotidine (Pepcid) 20 mg PO BID [facility] Last Admin: 08/18/18 09:18 Dose: Not Given Lactated Ringer's (Lactated Ringer's) 1,000 mls @ 250 mls/hr IV .Q4H [facility] Last Admin: 08/18/18 08:51 Dose: 250 mls/hr Piperacillin Sod/Tazobactam (Sod 3.375 gm/ Sodium Chloride) 100 mls @ 100 mls/hr IVPB Q6H [facility]; Protocol Last Admin: 08/18/18 08:57 Dose: 100 mls/hr Ketorolac Tromethamine (Toradol) 30 mg IVP Q6 PRN PRN Reason: Pain, severe (8-10) Last Admin: 08/18/18 05:17 Dose: 30 mg Ketorolac Tromethamine (Toradol) 15 mg IVP Q6 PRN PRN Reason: Pain, moderate (4-7) Lidocaine (Lidoderm) 1 ea TD DAILY [facility] Last Admin: 08/18/18 09:02 Dose: 1 ea Ondansetron HCl (Zofran Inj) 4 mg IVP Q6 PRN PRN Reason: Nausea/Vomiting Pantoprazole Sodium (Protonix Inj) 40 mg IVP DAILY [facility] Last Admin: 08/18/18 09:20 Dose: Not Given Pregabalin (Lyrica) 75 mg PO BID [facility] Results - Vital Signs Recent Vital Signs: Last Vital Signs Temp 97.7 F 08/18/18 08:28 Pulse 65 08/18/18 08:28 Resp 20 08/18/18 08:28 BP 123/76 08/18/18 08:28 Pulse Ox 98 08/18/18 08:28 - Labs Result Diagrams: 08/18/18 05:55 08/18/18 05:55 Labs: Laboratory Results - last 24 hr 08/17/18 08/17/18 08/17/18 14:15 14:15 14:49 WBC 7.2 RBC 4.07 Hgb 12.9 Hct 39.6 MCV 97.3 MCH 31.7 H MCHC 32.5 L RDW 13.4 Plt Count 184 MPV 11.1 Neut % (Auto) 79.2 H Lymph % (Auto) 12.5 L [place] % (Auto) 8.0 Eos % (Auto) 0.1 Baso % (Auto) 0.2 Neut # (Auto) 5.7 Lymph # (Auto) 0.9 L [place] # (Auto) 0.6 Eos # (Auto) 0.0 Baso # (Auto) 0.0 PT INR APTT Sodium 136 Potassium 3.6 Chloride 101 Carbon Dioxide 26 Anion Gap 13 BUN 10 Creatinine 0.7 Est GFR ( Amer) > 60 Est GFR (Non-Af Amer) > 60 Random Glucose 102 Lactic Acid Calcium 9.0 Total Bilirubin 2.2 H AST 517 H D ALT 296 H D Alkaline Phosphatase 238 H D Lactate Dehydrogenase Total Protein 8.0 Albumin 4.2 Globulin 3.8 Albumin/Globulin Ratio 1.1 Lipase 25986 H Urine Color Urine Clarity Urine pH Ur Specific [place] Urine Protein Urine Glucose (UA) Urine Ketones Urine Blood Urine Nitrate Urine Bilirubin Urine Urobilinogen Ur Leukocyte Esterase Urine RBC (Auto) Urine Microscopic WBC Ur Squamous Epith Cells Urine Bacteria Urine Opiates Screen Negative Urine Methadone Screen Negative Ur Barbiturates Screen Negative Ur Phencyclidine Scrn Negative Ur Amphetamines Screen Negative U Benzodiazepines Scrn Negative U Oth Cocaine Metabols Negative U Cannabinoids Screen Negative 08/17/18 08/17/18 08/17/18 17:10 17:26 17:26 WBC RBC Hgb Hct MCV MCH MCHC RDW Plt Count MPV Neut % (Auto) Lymph % (Auto) [place] % (Auto) Eos % (Auto) Baso % (Auto) Neut # (Auto) Lymph # (Auto) [place] # (Auto) Eos # (Auto) Baso # (Auto) PT INR APTT Sodium Potassium Chloride Carbon Dioxide Anion Gap BUN Creatinine Est GFR ( Amer) Est GFR (Non-Af Amer) Random Glucose Lactic Acid 0.7 Calcium Total Bilirubin AST ALT Alkaline Phosphatase Lactate Dehydrogenase 1347 H Total Protein Albumin Globulin Albumin/Globulin Ratio Lipase 60586 H Urine Color Yellow Urine Clarity Slighty-cloudy Urine pH 7.0 Ur Specific [place] < 1.005 Urine Protein Negative Urine Glucose (UA) Neg Urine Ketones Negative Urine Blood Small Urine Nitrate Negative Urine Bilirubin Negative Urine Urobilinogen 0.2-1.0 Ur Leukocyte Esterase Small Urine RBC (Auto) 4 H Urine Microscopic WBC 6 H Ur Squamous Epith Cells < 1 Urine Bacteria Rare Urine Opiates Screen Urine Methadone Screen Ur Barbiturates Screen Ur Phencyclidine Scrn Ur Amphetamines Screen U Benzodiazepines Scrn U Oth Cocaine Metabols U Cannabinoids Screen 01/08/18/18 08/18/18 17:26 05:55 05:55 WBC 5.4 RBC 3.89 Hgb 12.5 Hct 38.0 MCV 97.6 MCH 32.0 H MCHC 32.8 L RDW 13.7 Plt Count 169 MPV Neut % (Auto) Lymph % (Auto) [place] % (Auto) Eos % (Auto) Baso % (Auto) Neut # (Auto) Lymph # (Auto) [place] # (Auto) Eos # (Auto) Baso # (Auto) PT 11.2 INR 1.0 APTT 31.4 Sodium 138 Potassium 3.6 Chloride 103 Carbon Dioxide 24 Anion Gap 15 BUN 7 Creatinine 0.7 Est GFR ( Amer) > 60 Est GFR (Non-Af Amer) > 60 Random Glucose 86 Lactic Acid Calcium 8.8 Total Bilirubin 2.1 H AST 256 H D ALT 226 H D Alkaline Phosphatase 284 H Lactate Dehydrogenase Total Protein 7.1 Albumin 3.7 Globulin 3.4 Albumin/Globulin Ratio 1.1 Lipase 6701 H Urine Color Urine Clarity Urine pH Ur Specific [place] Urine Protein Urine Glucose (UA) Urine Ketones Urine Blood Urine Nitrate Urine Bilirubin Urine Urobilinogen Ur Leukocyte Esterase Urine RBC (Auto) Urine Microscopic WBC Ur Squamous Epith Cells Urine Bacteria Urine Opiates Screen Urine Methadone Screen Ur Barbiturates Screen Ur Phencyclidine Scrn Ur Amphetamines Screen U Benzodiazepines Scrn U Oth Cocaine Metabols U Cannabinoids Screen - Imaging and Cardiology US - abdomen Status: Image reviewed by me, Report reviewed by me Assessment & Plan - Assessment and Plan (Free Text) Plan: - Keep NPO - IV fluid hydration - Pain control - MRCP to r/o choledocholithiasis - Since patient is refusing any surgical involvement no general surgery intervention at present time - Continue care as per medical team - GI follow up - General surgery will sign off - Please re-consult as needed
[2018-08-17] MEDS: Lactated Ringer's 1,000 ML IV SCH (22:40)
[2018-08-17] MEDS: Lidocaine 5% Patch TD SCH (23:35)
[2018-08-18] MEDS: Lactated Ringer's 1,000 ML IV SCH ×3 (01:45→14:46)
[2018-08-18] MEDS: Piperacillin/Tazobact 3.375 GM in Sodium Chloride 0.9% 100 ML IVPB SCH ×3 (02:01→14:44)
[2018-08-18 06:40] LABS: ALB/GLOB RATIO 1.1 (1.0-2.1); ALBUMIN 3.7 g/dL (3.5-5.0); ALT/SGPT 226 U/L (9-52); AST/SGOT 256 U/L (14-36); BLOOD UREA NITROGEN 7 mg/dl (7-17); CALCIUM 8.8 mg/dL (8.4-10.2); GFR NON-AFRICAN AMERICAN > 60; HEMOGLOBIN 12.5 g/dL (12.0-16.0); MEAN CELL VOLUME 97.6 fl (81.0-99.0); MEAN CORPUSCULAR HGB CONC 32.8 g/dL (33.0-37.0); RBC 3.89 Mil/uL (3.80-5.20); RED CELL DISTRIBUTION WIDTH 13.7 % (11.5-14.5); WHITE BLOOD COUNT 5.4 K/uL (4.8-10.8)
--- NOTE | 2018-08-18 08:36 | CP.PCM.PN ---
<Matteo Gaines - Last Filed: 08/18/18 08:33> Subjective - Date & Time of Evaluation Date of Evaluation: 08/18/18 Time of Evaluation: 06:30 - Subjective Subjective: Patient seen and examined. Reports epigastric pain is much improved. Denies fever/chills, nausea/vomiting. Objective - Vital Signs/Intake and Output Vital Signs (last 24 hours): Temp Pulse Resp BP Pulse Ox 97.7 F 65 20 123/76 98 08/18/18 08:28 08/18/18 08:28 08/18/18 08:28 08/18/18 08:28 08/18/18 08:28 - Medications Medications: Current Medications Famotidine (Pepcid) 20 mg PO BID [facility] Lactated Ringer's (Lactated Ringer's) 1,000 mls @ 250 mls/hr IV .Q4H [facility] Last Admin: 08/18/18 01:45 Dose: Not Given Piperacillin Sod/Tazobactam (Sod 3.375 gm/ Sodium Chloride) 100 mls @ 100 mls/hr IVPB Q6H [facility]; Protocol Last Admin: 08/18/18 02:01 Dose: 100 mls/hr Ketorolac Tromethamine (Toradol) 30 mg IVP Q6 PRN PRN Reason: Pain, severe (8-10) Last Admin: 08/18/18 05:17 Dose: 30 mg Ketorolac Tromethamine (Toradol) 15 mg IVP Q6 PRN PRN Reason: Pain, moderate (4-7) Lidocaine (Lidoderm) 1 ea TD DAILY [facility] Last Admin: 08/17/18 23:35 Dose: 1 ea Ondansetron HCl (Zofran Inj) 4 mg IVP Q6 PRN PRN Reason: Nausea/Vomiting Pantoprazole Sodium (Protonix Inj) 40 mg IVP DAILY [facility] - Labs Labs: 08/18/18 05:55 08/18/18 05:55 PT 11.2 Seconds (9.8-13.1) 08/17/18 17:26 INR 1.0 08/17/18 17:26 APTT 31.4 Seconds (25.6-37.1) 08/17/18 17:26 - Constitutional Appears: No Acute Distress - Head Exam Head Exam: NORMOCEPHALIC - Eye Exam Eye Exam: EOMI, Normal appearance - ENT Exam ENT Exam: Mucous Membranes Moist - Respiratory Exam Respiratory Exam: NORMAL BREATHING PATTERN - Cardiovascular Exam Cardiovascular Exam: +S1, +S2 - GI/Abdominal Exam GI & Abdominal Exam: Soft, Tenderness Additional comments: mild epigastric tenderness - Neurological Exam Neurological Exam: Alert, Awake, Oriented x3 - Psychiatric Exam Psychiatric exam: Normal Mood - Skin Skin Exam: Dry, Intact, Warm Assessment and Plan - Assessment and Plan (Free Text) Assessment: 57F with gallstone pancreatitis Plan: NPO F/u lipase F/u MRCP Strict urine output Aggressive fluid hydration IV ABx for cholecystitis PRN pain and nausea medication Encourage ambulation F/u GI recs Further recs per Dr. Jacky Rivero PGY3 <Nicola Rico - Last Filed: 08/18/18 10:39> Subjective - Date & Time of Evaluation Time of Evaluation: 09:35 - Subjective Subjective: Patient was seen and examined at the bedside. Agree with resident's note above. States that feeling much better today. Patient is refusing any surgical intervention and currently demanding food. I have explained to the patient that her pancreatitis is caused by passage of the stone from the gallbladder into the biliary tree and she will need cholecystectomy to prevent future attacks of gallstone pancreatitis, however patient wants nothing to do with the surgery and is aware that not getting surgery will make her condition worse and possibly cause but despite of this fact she is refusing any surgical intervention. Objective - Vital Signs/Intake and Output Vital Signs (last 24 hours): Temp Pulse Resp BP Pulse Ox 97.7 F 65 20 123/76 98 08/18/18 08:28 08/18/18 08:28 08/18/18 08:28 08/18/18 08:28 08/18/18 08:28 - Medications Medications: Current Medications Enoxaparin Sodium (Lovenox) 40 mg SC DAILY [facility]; Protocol Famotidine (Pepcid) 20 mg PO BID [facility] Last Admin: 08/18/18 09:18 Dose: Not Given Lactated Ringer's (Lactated Ringer's) 1,000 mls @ 250 mls/hr IV .Q4H [facility] Last Admin: 08/18/18 08:51 Dose: 250 mls/hr Piperacillin Sod/Tazobactam (Sod 3.375 gm/ Sodium Chloride) 100 mls @ 100 mls/hr IVPB Q6H [facility]; Protocol Last Admin: 08/18/18 08:57 Dose: 100 mls/hr Ketorolac Tromethamine (Toradol) 30 mg IVP Q6 PRN PRN Reason: Pain, severe (8-10) Last Admin: 08/18/18 05:17 Dose: 30 mg Ketorolac Tromethamine (Toradol) 15 mg IVP Q6 PRN PRN Reason: Pain, moderate (4-7) Lidocaine (Lidoderm) 1 ea TD DAILY [facility] Last Admin: 08/18/18 09:02 Dose: 1 ea Ondansetron HCl (Zofran Inj) 4 mg IVP Q6 PRN PRN Reason: Nausea/Vomiting Pantoprazole Sodium (Protonix Inj) 40 mg IVP DAILY [facility] Last Admin: 08/18/18 09:20 Dose: Not Given - Labs Labs: 08/18/18 05:55 08/18/18 05:55 PT 11.2 Seconds (9.8-13.1) 08/17/18 17:26 INR 1.0 08/17/18 17:26 APTT 31.4 Seconds (25.6-37.1) 08/17/18 17:26 - GI/Abdominal Exam Additional comments: soft, very mildly tender in the epigastrium, ND, BS+, no rebound, no guarding, negative Bell's sign Assessment and Plan - Assessment and Plan (Free Text) Plan: - Keep NPO - IV fluid hydration - Pain control - MRCP to r/o choledocholithiasis - Since patient is refusing any surgical involvement no general surgery intervention at present time - Continue care as per medical team - GI follow up - General surgery will sign off - Please re-consult as needed
[2018-08-18] MEDS: Lidocaine 5% Patch TD SCH (09:02)
[2018-08-18 09:42] LABS: LIPASE 6701 U/L (23-300)
--- NOTE | 2018-08-18 10:02 | CARD ---
APPROVED REPORT Date of service: 08/17/2018 EKG Measurement Heart [id number] DE [id number] <Conclusion> Sinus bradycardia Low voltage QRS Borderline ECG
[2018-08-18] MEDS ORDERED: Sodium Chloride 0.9% 50 ML IV ONE (10:48)
[2018-08-18] MEDS ORDERED: Gadodiamide 287 MG/ML VIAL (15ML) IV ONE (10:48)
--- NOTE | 2018-08-18 11:52 | US ---
Date of service: 08/17/2018 HISTORY: elevated LFTs and pancreatitis COMPARISON: None. TECHNIQUE: Sonographic evaluation of the right upper quadrant of the abdomen. FINDINGS: LIVER: Measures 13.6 cm in length. Normal echogenicity of the liver parenchyma. No mass. No intrahepatic bile duct dilatation. GALLBLADDER: Multiple gallstones are noted. There is mild to moderate thickening of the gallbladder wall noted. COMMON BILE DUCT: Measures 5.4 mm. No stones. No dilatation. PANCREAS: Unremarkable as visualized. No mass. No ductal dilatation. RIGHT KIDNEY: Measures 8.5 x 3.3 x 5.4 cm in length. Normal echogenicity. No calculus, mass, or hydronephrosis. AORTA: No aneurysmal dilatation. IVC: Unremarkable. OTHER FINDINGS: None . IMPRESSION: Multiple gallstones and mild to moderate gallbladder wall thickening. The possibility of acute cholecystitis should be considered. No evidence of biliary ductal dilatation.
--- NOTE | 2018-08-18 12:57 | MRI ---
Date of service: 08/18/2018 PROCEDURE: Magnetic Resonance Cholangiopancreatography HISTORY: Gallstone pancreatitis COMPARISON: Comparison is made to the previous ultrasound of the abdomen dated 08/17/2018 TECHNIQUE: Multiplanar, multisequence MR images of the abdomen were obtained, including heavily T2 weighted MRCP images of the biliary system. Rotating maximum intensity projection images of the biliary system were generated. FINDINGS: MRCP: The common bile duct is of a normal caliber. No evidence of choledocholithiasis. No intrahepatic biliary ductal dilatation. LIVER: Unremarkable. GALLBLADDER: The gallbladder is distended contains multiple gallstones and demonstrate diffuse wall thickening with trace pericholecystic fluid. Findings suspicious for acute cholecystitis. SPLEEN: Unremarkable. PANCREAS: The pancreas is normal in size and shape. No evidence of significant peripancreatic fluid noted in this exam. The main pancreatic duct is not dilated. ADRENALS: Unremarkable. KIDNEYS: Unremarkable. AORTA: No aneurysm. ASCITES: None. OTHER FINDINGS: None. IMPRESSION: Gallstones with findings suspicious for acute cholecystitis. No evidence of significant peripancreatic inflammatory changes. No evidence of choledocholithiasis.
--- NOTE | 2018-08-18 15:20 | CP.PCM.PN ---
<Fred Farrar - Last Filed: 08/18/18 15:43> Subjective - Date & Time of Evaluation Date of Evaluation: 08/18/18 Time of Evaluation: 08:00 - Subjective Subjective: Pt denies any abdominal pain,n/v. States she is hungry. States she does not want surgery at all. Risks and benefits discussed. Pt still refusing. Complaining of left leg neuropathic pain. States she takes Lyrica at home. Objective - Vital Signs/Intake and Output Vital Signs (last 24 hours): Temp Pulse Resp BP Pulse Ox 97.7 F 65 20 123/76 98 08/18/18 08:28 08/18/18 08:28 08/18/18 08:28 08/18/18 08:28 08/18/18 08:28 - Medications Medications: Current Medications Acetaminophen (Tylenol 325mg Tab) 650 mg PO Q6 PRN PRN Reason: Pain, Mild (1-3) Enoxaparin Sodium (Lovenox) 40 mg SC DAILY [facility]; Protocol Famotidine (Pepcid) 20 mg PO BID [facility] Last Admin: 08/18/18 09:18 Dose: Not Given Lactated Ringer's (Lactated Ringer's) 1,000 mls @ 250 mls/hr IV .Q4H [facility] Last Admin: 08/18/18 14:46 Dose: Not Given Piperacillin Sod/Tazobactam (Sod 3.375 gm/ Sodium Chloride) 100 mls @ 100 mls/hr IVPB Q6H [facility]; Protocol Last Admin: 08/18/18 14:44 Dose: 100 mls/hr Ketorolac Tromethamine (Toradol) 30 mg IVP Q6 PRN PRN Reason: Pain, severe (8-10) Last Admin: 08/18/18 05:17 Dose: 30 mg Ketorolac Tromethamine (Toradol) 15 mg IVP Q6 PRN PRN Reason: Pain, moderate (4-7) Lidocaine (Lidoderm) 1 ea TD DAILY [facility] Last Admin: 08/18/18 09:02 Dose: 1 ea Ondansetron HCl (Zofran Inj) 4 mg IVP Q6 PRN PRN Reason: Nausea/Vomiting Pantoprazole Sodium (Protonix Inj) 40 mg IVP DAILY [facility] Last Admin: 08/18/18 09:20 Dose: Not Given Pregabalin (Lyrica) 75 mg PO BID [facility] Last Admin: 08/18/18 13:17 Dose: Not Given - Labs Labs: 08/18/18 05:55 08/18/18 05:55 PT 11.2 Seconds (9.8-13.1) 08/17/18 17:26 INR 1.0 08/17/18 17:26 APTT 31.4 Seconds (25.6-37.1) 08/17/18 17:26 - Constitutional Appears: In Acute Distress - Head Exam Head Exam: NORMAL INSPECTION - Eye Exam Eye Exam: Normal appearance - ENT Exam ENT Exam: Mucous Membranes Moist - Respiratory Exam Respiratory Exam: Clear to Ausculation Bilateral - Cardiovascular Exam Cardiovascular Exam: REGULAR RHYTHM - Extremities Exam Extremities Exam: Normal Inspection - Neurological Exam Neurological Exam: Alert, Awake - Psychiatric Exam Psychiatric exam: Anxious, Normal Affect - Skin Skin Exam: Normal Color Assessment and Plan - Assessment and Plan (Free Text) Assessment: 57 y/o F with a PMHx of DVT, GERD and Complex Regional Pain Syndrome was admitted for evaluation and management of cholecystitis, cholelithiasis and pancreatitis. T.Bili trending down but still elevated (2.2>2.1) Transaminitis imrpoving 517/296>> 256/226 Lipase Improving 12l>10k>6k MRCP today Surgery and GI following PLAN: >Pancreatitis/Cholelithiasis/Cholecystitis --US Abdomen: multiple small gallstones, thickening and edema of the gallbladder wall, pancreas WNL but distal pancreas was not visualized. --MRCP completed this morning. Gallstones w/ findings suspicious for acute cho lecystitis. No evidence of peripancreatic inflammatory changes. No evidence of choledocolithiasis. --Has been NPO overnight. Will advance diet to liquid today since pt is pain free and no plan for surgery. --IV fluids: LR at 250mL.hr --Pain management: IV Toradol 30mg for severe pain, 15mg for moderate pain. --GI consult, Dr Brandon --Gen Surgery, Dr Rico. --F/U AM labs. >Complex Regional Pain Syndrome/Chronic left lower leg pain --Hold PO home meds due to possible procedure. --Lidoderm topical daily >Hx of provoked DVT --Hold PO Plavix due to possibility of surgery. >DVT Prophylaxis --SCD on R leg only due to left lower leg pain --Hold anticoagulants due to possible procedure. Discussed with Dr Isidro Jenkins, PGY2 <Carey Felix - Last Filed: 08/18/18 17:53> Objective - Vital Signs/Intake and Output Vital Signs (last 24 hours): Temp Pulse Resp BP Pulse Ox 97.1 F L 63 18 130/80 98 08/18/18 17:00 08/18/18 17:00 08/18/18 17:00 08/18/18 17:00 08/18/18 17:00 - Medications Medications: Current Medications Enoxaparin Sodium (Lovenox) 40 mg SC DAILY [facility]; Protocol Famotidine (Pepcid) 20 mg PO BID [facility] Last Admin: 08/18/18 17:23 Dose: Not Given Lactated Ringer's (Lactated Ringer's) 1,000 mls @ 250 mls/hr IV .Q4H [facility] Last Admin: 08/18/18 14:46 Dose: Not Given Piperacillin Sod/Tazobactam (Sod 3.375 gm/ Sodium Chloride) 100 mls @ 100 mls /hr IVPB Q6H [facility]; Protocol Last Admin: 08/18/18 14:44 Dose: 100 mls/hr Ketorolac Tromethamine (Toradol) 30 mg IVP Q6 PRN PRN Reason: Pain, severe (8-10) Last Admin: 08/18/18 05:17 Dose: 30 mg Ketorolac Tromethamine (Toradol) 15 mg IVP Q6 PRN PRN Reason: Pain, moderate (4-7) Lidocaine (Lidoderm) 1 ea TD DAILY [facility] Last Admin: 08/18/18 09:02 Dose: 1 ea Ondansetron HCl (Zofran Inj) 4 mg IVP Q6 PRN PRN Reason: Nausea/Vomiting Pantoprazole Sodium (Protonix Inj) 40 mg IVP DAILY [facility] Last Admin: 08/18/18 09:20 Dose: Not Given Pregabalin (Lyrica) 75 mg PO BID [facility] Last Admin: 08/18/18 13:17 Dose: Not Given - Labs Labs: 08/18/18 05:55 08/18/18 05:55 PT 11.2 Seconds (9.8-13.1) 08/17/18 17:26 INR 1.0 08/17/18 17:26 APTT 31.4 Seconds (25.6-37.1) 08/17/18 17:26 Attending/Attestation - Attestation I have personally seen and examined this patient.: Yes I have fully participated in the care of the patient.: Yes I have reviewed all pertinent clinical information, including history, physical exam and plan: Yes
[2018-08-18 15:41] LABS: HDL CHOLESTEROL 56 MG/DL (30-70)
[2018-08-18 15:52] LABS: LDL CHOLESTEROL 66 mg/dL (0-129)
[2018-08-18 16:25] VITALS: BP 130/80; PULSE 63; RESP 18; TEMP 97.1
[2018-08-18] MEDS ORDERED: Enoxaparin 40 mg Syringe SC SCH (17:00)
--- NOTE | 2018-08-18 18:05 | CP.PCM.PCO ---
Against Medical Advice - AMA Patient Left Against Medical Advice: The patient was admitted and declines treatment at this time. This action is against my medical advice. This decision was made with informed refusal. The patient was told that treatment of her condition is necessary. Explanation of the reasons why were discussed. The risks of leaving were explained to the patient and include, but are not limited to, worsening of known or currently unknown conditions, permanent disability and from undiagnosed or untreated conditions. The patient has the capacity to make this informed decision and understands my explanation of the current medical problem and risks of leaving. The patient voluntarily accepts these risks and signed an AMA form documenting our conversation. The patient was given the opportunity to ask questions and reconsider. The patient was encouraged to return to the Emergency Department at any time for further care.
[2018-08-18] MEDS ORDERED: Lidocaine 5% Patch TD SCH (21:00)
[2018-08-18 23:32] VITALS: O2SAT 99
--- NOTE | 2018-08-19 04:27 | CON ---
DATE: 08/18/2018 REFERRING PHYSICIAN: Dr. Felix. REASON FOR CONSULTATION: Cholecystitis, gallstone, pancreatitis. HISTORY OF PRESENT ILLNESS: This is a pleasant 57-year-old female with history of GERD, and abdominal discomfort. The patient was basically having pain and discomfort while he eats beans. The pain since has resolved but is still present on palpation. He has had this on and off for the past few months, currently lying in bed comfortably, in no apparent distress. PAST MEDICAL HISTORY: As above. PAST SURGICAL HISTORY: As above. MEDICATIONS: Reviewed. REVIEW OF SYSTEMS: All other systems have been reviewed and negative apart from the HPI. PHYSICAL EXAMINATION: VITAL SIGNS: Here in the hospital are grossly unremarkable. GENERAL: A pleasant middle-aged female, lying in bed comfortably, in no apparent distress. HEENT: Head: Normocephalic and atraumatic. Eyes: Pupils are equally reactive to light bilaterally. No conjunctival pallor or icterus. NECK: Supple. Normal range of motion. No lymphadenopathy appreciated. LUNGS: Coarse breath sounds bilaterally. HEART: S1 and S2. Regular rate and rhythm. No S3. ABDOMEN: Soft. Some discomfort in the epigastric region. No rebound. No guarding. RECTAL: Deferred. EXTREMITIES: Pulses present bilaterally. SKIN: Warm, dry, and intact. NEUROLOGIC: Alert and oriented x3. LABORATORY DATA: Labs and radiology have been reviewed. Ultrasound shows multiple gallstones, [id number] gallbladder wall thickening, likely cholecystitis. MRCP demonstrated no CBD stones. WBC is , hemoglobin 12.5 and stable. Lipase is 10,000 and improving. Total bili 2.1, AST 256, ALT 236, alk phos of 284. ASSESSMENT AND PLAN: This is a 57-year-old female with gallstone, pancreatitis, and cholecystitis. Antibiotics for now. N.p.o., pain control. Surgical consult appreciated. We will likely need gallbladder removal. Thank you for the consult. Kolby Brandon MD/ PhD cc: Dr. Felix
== END 2018-08-18 18:25 | disposition left against medical advice (07) ==
LOC: H.ER 12:17 → H.ERHOLD 19:24 → H.MEDSURG1 21:45
PROVIDERS: ADMIT Student in an Organized Health Care Education/Training Program; ATTEND Student in an Organized Health Care Education/Training Program
DX: K80.00 Calculus of gallbladder with acute cholecystitis without obstruction (principal); K85.10 Biliary acute pancreatitis without necrosis or infection; Z79.02 Long term (current) use of antithrombotics/antiplatelets; Z86.718 Personal history of other venous thrombosis and embolism; G90.50 Complex regional pain syndrome I, unspecified; K21.9 Gastro-esophageal reflux disease without esophagitis; Z79.82 Long term (current) use of aspirin; R74.0 Nonspecific elevation of levels of transaminase and lactic acid dehydrogenase [LDH]

== ENCOUNTER 2018-10-11 12:23 | Observation (INO) | payer MEDICAID, OTHER ==
[2018-10-11 12:23] VITALS: BMI 31.8
[2018-10-11] MEDS: Sodium Chloride 0.9% 1,000 ML IV SCH ×2 (13:30→21:04)
[2018-10-11 13:41] LABS: BASO % 0.4 % (0.0-2.0); EOS # 0.1 K/uL (0.0-0.7); EOS % 1.6 % (0.0-4.0); LYMPH # 1.5 K/uL (1.0-4.3); LYMPH % 27.6 % (20.0-40.0); MEAN CELL VOLUME 96.4 fl (81.0-99.0); MEAN CORPUSCULAR HEMOGLOBIN 32.2 pg (27.0-31.0); MEAN CORPUSCULAR HGB CONC 33.4 g/dL (33.0-37.0); MEAN PLATELET VOLUME 10.7 fl (7.2-11.7); MONO # 0.4 K/uL (0.0-0.8); MONO % 7.5 % (0.0-10.0); NEUT # 3.4 K/uL (1.8-7.0); NEUT % 62.9 % (50.0-75.0); RBC 3.73 Mil/uL (3.80-5.20); RED CELL DISTRIBUTION WIDTH 13.9 % (11.5-14.5); WHITE BLOOD COUNT 5.4 K/uL (4.8-10.8)
[2018-10-11 13:44] LABS: VENOUS BLOOD GAS BASE EXCESS 0.6 mmol/L (0.0-2.0); VENOUS BLOOD GAS PCO2 49 mmHg (40-60); VENOUS BLOOD GAS PO2 23 mm/Hg (30-55); VENOUS BLOOD PH 7.35 (7.32-7.43)
--- NOTE | 2018-10-11 13:45 | ED PDOC ---
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 Patient reports she has had reflex sympathetic dystrophy for the past el even years, and three-four months ago patient developed left ankle swelling which she has been treating with Epsom salt wraps; one week ago, patient notes that the swelling moved up into her left calf as well and three days ago the whole area became red. She states that the left calf has tingling as if someone is poking her with little needles. Otherwise, patient denies fever, cough, chest pain, shortness of breath, and right leg pain/ swelling. PMD: none provided Past Medical History Reviewed: Historical Data, Nursing Documentation, Vital Signs Vital Signs: Last Vital Signs Temp 97.2 F L 10/11/18 12:37 Pulse 76 10/11/18 12:37 Resp 16 10/11/18 12:37 BP 137/93 H 10/11/18 12:37 Pulse Ox 98 10/11/18 12:37 - Medical History PMH: Deep Vein Thrombosis Denies: Chronic Kidney Disease Other PMH: reflex sympathetic dystrophy - Surgical History Other surgeries: "bone surgery" within b/l lower extremities when in 2006, left leg fracture when 13 years old - Family History Family History: States: Unknown Family Hx - Social History Current smoker - smoking cessation education provided: No Alcohol: None Drugs: Denies - Home Medications Home Medications: Ambulatory Orders Medication Instructions Recorded Clopidogrel [Plavix] 75 mg PO DAILY 08/17/18 Pamabrom [Diuretic Softgel] 50 mg PO Q6 PRN 08/17/18 Pregabalin [Lyrica] 75 mg PO BID 08/17/18 Ciprofloxacin HCl [Cipro] 500 mg PO Q12H 10 Days #20 tab 08/18/18 - Allergies Allergies/Adverse Reactions: Allergies Allergy/AdvReac Type Severity Reaction Status Date / Time aspirin Allergy REDNESS Verified 10/11/18 12:37 cefazolin Allergy ITCHING Verified 10/11/18 12:37 Review of Systems ROS Statement: Except As Marked, All Systems Reviewed And Found Negative Constitutional: Negative for: Fever Cardiovascular: Negative for: Chest Pain Respiratory: Negative for: Cough, Shortness of Breath Musculoskeletal: Positive for: Leg Pain (left leg pain, swelling, and redness; right leg normal) Neurological: Positive for: Numbness (and tingling to left lower calf) Physical Exam - Reviewed Nursing Documentation Reviewed: Yes Vital Signs Reviewed: Yes - Physical Exam Appears: Positive for: No Acute Distress Head Exam: Positive for: ATRAUMATIC, NORMOCEPHALIC Skin: Positive for: Warm, Dry Eye Exam: Positive for: Normal appearance Neck: Positive for: Normal, Painless ROM, Supple Cardiovascular/Chest: Positive for: Regular Rate, Rhythm Respiratory: Positive for: Normal Breath Sounds. Negative for: Accessory Muscle Use, Respiratory Distress Pulses-Dorsalis Pedis (L): 2+ Pulses-Dorsalis Pedis (R): 2+ Pulses-Post. Tibialis (L): 2+ Pulses-Post. Tibialis (R): 2+ Gastrointestinal/Abdominal: Positive for: Normal Exam, Soft. Negative for: Tenderness Back: Positive for: Normal Inspection Extremity: Positive for: Normal ROM (all extremities), Tenderness (diffuse tenderness to left lower 2/3 of calf into ankle), Swelling (to 2/3 of left calf down into ankle with erythema and scattered spots of induration), Other (multiple old surgical scars noted to left calf) Neurological/Psych: Positive for: Awake, Alert, Oriented (x3) - Laboratory Results Result Diagrams: 10/11/18 13:20 10/11/18 13:20 Interpretation Of Abn Labs: no acute - ECG O2 Sat by Pulse Oximetry: 98 (RA) Pulse Ox Interpretation: Normal - Radiology X-Ray: Read By Radiologist X-Ray Interpretation: No Acute Disease - Progress ED Course And Treament: 1643: Stable. Pt. abusive to staff and refusing ultrasound to eval for dvt. Will admit for cellulitis. Dr. Ferrara aware and will admit. Pt. aware of possible and decreased functioning from not getting full evaluation and treatment. Pt. on plavix. Medical Decision Making Medical Decision Making: Time: 1310 Impression: left leg swelling, pain, and erythema; r/o DVT Initial Plan: --Patient denies pain medication, stating that her Lyrica is enough for her --EKG --VBG --Magnesium/ Phosphorus --CBC with differential --PT / PTT --Normal saline IV --Blood culture --Placed on calculus professor --Tibia fibula left XR --US left lower extremity duplex --Reevaluation Upon review of old charts, patient recently was admitted for pancreatitis and gallstones, but left AMA. Scribe Attestation: Documented by Nayeli Renae, acting as a scribe for Merritt Singh MD. Provider Scribe Attestation: All medical record entries made by the Scribe were at my direction and personally dictated by me. I have reviewed the chart and agree that the record accurately reflects my personal performance of the history, physical exam, medical decision making, and the department course for this patient. I have also personally directed, reviewed, and agree with the discharge instructions and disposition. Disposition - Clinical Impression Clinical Impression: Cellulitis, Leg pain - Patient ED Disposition Is Patient to be Admitted: Yes Counseled Patient/Family Regarding: Studies Performed, Diagnosis - Disposition Disposition Time: 14:00 Condition: FAIR - Pt Status Changed To: Hospital Disposition Of: Inpatient - Admit Certification Admit to Inpatient:: After my assessment, the patient will require hospitalization for at least two midnights. This is because of the severity of symptoms shown, intensity of services needed, and/or the medical risk in this patient being treated as an outpatient. - POA Present On Arrival: None
[2018-10-11 13:53] LABS: PROTHROMBIN TIME 11.6 Seconds (9.8-13.1)
[2018-10-11 13:55] LABS: PARTIAL THROMBOPLASTIN TIME 32.1 Seconds (25.6-37.1)
[2018-10-11 14:08] LABS: ALB/GLOB RATIO 1.1 (1.0-2.1); ALBUMIN 4.1 g/dL (3.5-5.0); BLOOD UREA NITROGEN 7 mg/dl (7-17); GFR NON-AFRICAN AMERICAN > 60
[2018-10-11 14:14] LABS: ALT/SGPT 27 U/L (9-52); AST/SGOT 51 U/L (14-36)
--- NOTE | 2018-10-11 15:43 | RAD ---
Date of service: 10/11/2018 PROCEDURE: Radiographs of the left tibia and fibula. HISTORY: pain COMPARISON: None available. TECHNIQUE: Frontal and lateral views obtained. FINDINGS: BONES: No evidence of acute displaced fracture nor dislocation. Questionable old healed fracture deformity distal left fibula JOINT SPACES: Mild degenerative osteoarthritis tibiotalar articulation. OTHER FINDINGS: . No subcutaneous emphysema is identified IMPRESSION: No evidence of acute displaced fracture nor dislocation. Questionable old healed fracture deformity distal left fibula no definitive cortical destructive changes. Mild degenerative osteoarthritis tibiotalar articulation.
[2018-10-11] MEDS ORDERED: Clindamycin 600mg/50ml D5W 600 MG/50 ML VIAL IVPB STA (16:42)
[2018-10-11] MEDS ORDERED: Morphine 4 MG/ML VIAL ONE (17:04)
--- NOTE | 2018-10-11 17:39 | CP.PCM.HP ---
<Irene Mercer - Last Filed: 10/11/18 20:25> History of Present Illness - History of Present Illness History of Present Illness: 58 y/o F with a PMHx per patient of reflex sympathetic dystrophy, presented to ED with complaint of left leg pain/redness. Pt states that symptoms started 1 week ago and lasted for 5 days, then improved, and returned again 1 day ago. She states she has been trying to treat the pain herself with Epsom salt wraps. In ED, stated that left calf has tingling as if someone is poking her with little needles. ROS: Denies fever, cough, chest pain, shortness of breath, and right leg pain/swelling. In ED patient refused to undergo ultrasound of left lower extremity to evaluate for DVT. She states that she cannot handle any pressure or anything more than a light touch on the affected extremity and adamantly refused ultrasound. She states she is aware it is possible that she has a blood clot and understands need for the study but maintained that she did not want it, stated "I would rather than have the study." PCP: today pt states no PCP; upon review of chart, past PCP given were: Derick Booth/Dr Robe Smith Past Med Hx: GERD, left leg neuropathic pain/Complex Regional Pain Syndrome (diagnosed in [facility] a few years ago), Left lower leg DVT Past Surg Hx: Bilateral tibia and fibular surgical correction, unspecified (?ORIF). Left ankle ORIF. Family Hx: Father of Colon Cancer at age 73. Social Hx: Never smoker, no alcohol and no rec drugs. Allergies: Aspirin and Cefazolin (Rash) Meds: Lyrica 75mg BID, Clopidogrel 75mg daily. In ED: Vitals: afebrile, BP 137/93, HR 76, O2 sat 98%, RR 16 EKG NSR Labs: CBC no leukocytosis, H/H 12.0/36.0, PLT 194. CMP: AST 51, Mg 2.4. Coags wnl, INR 1.0 Lactate 0.7 XRAY: Tib/Fib - No subcutaneous emphysema. No evidence of acute displaced fracture nor dislocation. Questionable old healed fracture deformity distal left fibula; no definitive cortical destructive changes. Mild degenerative osteoarthritis tibiotalar articulation. Refused lower ext u/s to eval for DVT Received Clindamycin 600 mg x1 Morphine 4 mg x1 NS @ 150 ml/hr Present on Admission - Present on Admission Any Indicators Present on Admission: Yes History of DVT/PE: Yes Review of Systems - Review of Systems Review of Systems: as per hpi Past Patient History - Past Medical History & Family History Past Medical History?: Yes - Past Social History Smoking Status: Never Smoked Alcohol: None Drugs: Denies - CARDIAC Hx Cardiac Disorders: No - PULMONARY Hx Respiratory Disorders: No - NEUROLOGICAL Hx Neurological Disorder: Yes Other/Comment: Reflex sympathetic dystrophy - HEENT Hx HEENT Problems: No - RENAL Hx Chronic Kidney Disease: No - ENDOCRINE/METABOLIC Hx Endocrine Disorders: Yes Other/Comment: hypoglycemia - HEMATOLOGICAL/ONCOLOGICAL Hx Blood Disorders: Yes Other/Comment: DVT - INTEGUMENTARY Hx Dermatological Problems: No - MUSCULOSKELETAL/RHEUMATOLOGICAL Hx Musculoskeletal Disorders: Yes Hx Falls: Yes (fell a "few months ago" while cleaning) Hx Unsteady Gait: Yes - GASTROINTESTINAL Hx Gastrointestinal Disorders: No - GENITOURINARY/GYNECOLOGICAL Hx Genitourinary Disorders: No - PSYCHIATRIC Hx Substance Use: No - SURGICAL HISTORY Hx Surgeries: Yes Hx Orthopedic Surgery: Yes Other/Comment: "bone surgery" within b/l lower extremities when in 2006, left leg fracture when 13 years old - ANESTHESIA Hx Anesthesia: Yes Hx Anesthesia Reactions: No Hx Malignant Hyperthermia: No Meds Allergies/Adverse Reactions: Allergies Allergy/AdvReac Type Severity Reaction Status Date / Time aspirin Allergy REDNESS Verified 10/11/18 12:37 cefazolin Allergy ITCHING Verified 10/11/18 12:37 Physical Exam - Constitutional Appears: Non-toxic, No Acute Distress - Head Exam Head Exam: NORMAL INSPECTION - Eye Exam Eye Exam: Normal appearance - ENT Exam ENT Exam: Mucous Membranes Moist - Respiratory Exam Respiratory Exam: Clear to Auscultation Bilateral, NORMAL BREATHING PATTERN. absent: Respiratory Distress - Cardiovascular Exam Cardiovascular Exam: REGULAR RHYTHM, +S1, +S2 - GI/Abdominal Exam GI & Abdominal Exam: Normal Bowel Sounds, Soft - Extremities Exam Additional comments: LEFT lower extremity erythematous and mildly edematous; tender to touch RIGHT lower ext unremarkable - Neurological Exam Neurological exam: Alert, Oriented x3 - Psychiatric Exam Psychiatric exam: Anxious - Skin Skin Exam: Erythema, Warm Results - Vital Signs Recent Vital Signs: Last Vital Signs Temp 98.7 F 10/11/18 14:10 Pulse 70 10/11/18 14:10 Resp 27 H 10/11/18 14:10 BP 159/54 H 10/11/18 14:10 Pulse Ox 98 10/11/18 16:44 - Labs Result Diagrams: 10/11/18 13:20 10/11/18 13:20 Labs: Laboratory Results - last 24 hr 10/11/18 10/11/18 10/11/18 13:18 13:20 13:20 WBC 5.4 RBC 3.73 L Hgb 12.0 Hct 36.0 MCV 96.4 MCH 32.2 H MCHC 33.4 RDW 13.9 Plt Count 194 MPV 10.7 Neut % (Auto) 62.9 Lymph % (Auto) 27.6 [place] % (Auto) 7.5 Eos % (Auto) 1.6 Baso % (Auto) 0.4 Neut # (Auto) 3.4 Lymph # (Auto) 1.5 [place] # (Auto) 0.4 Eos # (Auto) 0.1 Baso # (Auto) 0.0 PT INR APTT pO2 23 L VBG pH 7.35 VBG pCO2 49 VBG HCO3 23.6 VBG Total CO2 28.6 H VBG O2 Sat (Calc) 40.9 VBG Base Excess 0.6 VBG Potassium 3.8 Sodium 139.0 141 Chloride 107.0 106 Glucose 82 Lactate 0.7 FiO2 21.0 Potassium 3.9 Carbon Dioxide 26 Anion Gap 13 BUN 7 Creatinine 0.6 L Est GFR ( Amer) > 60 Est GFR (Non-Af Amer) > 60 Random Glucose 82 Calcium 9.0 Phosphorus 3.2 Magnesium 2.4 H Total Bilirubin 0.5 AST 51 H D ALT 27 Alkaline Phosphatase 116 Total Protein 8.0 Albumin 4.1 Globulin 3.9 Albumin/Globulin Ratio 1.1 Venous Blood Potassium 3.8 10/11/18 13:20 WBC RBC Hgb Hct MCV MCH MCHC RDW Plt Count MPV Neut % (Auto) Lymph % (Auto) [place] % (Auto) Eos % (Auto) Baso % (Auto) Neut # (Auto) Lymph # (Auto) [place] # (Auto) Eos # (Auto) Baso # (Auto) PT 11.6 INR 1.0 APTT 32.1 pO2 VBG pH VBG pCO2 VBG HCO3 VBG Total CO2 VBG O2 Sat (Calc) VBG Base Excess VBG Potassium Sodium Chloride Glucose Lactate FiO2 Potassium Carbon Dioxide Anion Gap BUN Creatinine Est GFR ( Amer) Est GFR (Non-Af Amer) Random Glucose Calcium Phosphorus Magnesium Total Bilirubin AST ALT Alkaline Phosphatase Total Protein Albumin Globulin Albumin/Globulin Ratio Venous Blood Potassium Assessment & Plan - Assessment and Plan (Free Text) Assessment: 58 yo F with hx past DVT and reflex sympathetic dystrophy, admitted due to erythema and edema of right lower extremity, suspected cellulitis vs DVT. Patient has adamantly refused lower ext u/s for eval of potential DVT; she was explicitly made aware that a blood clot could travel to other parts of her body including but not limited to her lungs and may cause severe impairment as well as ; states that she understands the risks and continues to refuse ultrasound. Admitted for IV treatment of cellulitis. Plan: Left lower extremity swelling/erythema - Cellulitis vs DVT - Clindamycin IV 300 mg Q6 hrs - As above, pt declining/refusing lower ext u/s; D-Dimer ordered Reflex sympathetic dystrophy - Resume home med lyrica Diet - Regular diet History of DVT - Resume home med plavix - Prophylactic lovenox Patient seen/examined/discussed with Dr. Ferrara. <Leonid Ferrara D - Last Filed: 10/12/18 09:16> Results - Vital Signs Recent Vital Signs: Last Vital Signs Temp 97.9 F 10/12/18 08:30 Pulse 67 10/12/18 08:30 Resp 20 10/12/18 08:30 BP 103/68 10/12/18 08:30 Pulse Ox 98 10/12/18 08:30 - Labs Result Diagrams: 10/11/18 13:20 10/11/18 13:20 Labs: Laboratory Results - last 24 hr 10/11/18 10/11/18 10/11/18 13:18 13:20 13:20 WBC 5.4 RBC 3.73 L Hgb 12.0 Hct 36.0 MCV 96.4 MCH 32.2 H MCHC 33.4 RDW 13.9 Plt Count 194 MPV 10.7 Neut % (Auto) 62.9 Lymph % (Auto) 27.6 [place] % (Auto) 7.5 Eos % (Auto) 1.6 Baso % (Auto) 0.4 Neut # (Auto) 3.4 Lymph # (Auto) 1.5 [place] # (Auto) 0.4 Eos # (Auto) 0.1 Baso # (Auto) 0.0 PT INR APTT D-Dimer, Quantitative pO2 23 L VBG pH 7.35 VBG pCO2 49 VBG HCO3 23.6 VBG Total CO2 28.6 H VBG O2 Sat (Calc) 40.9 VBG Base Excess 0.6 VBG Potassium 3.8 Sodium 139.0 141 Chloride 107.0 106 Glucose 82 Lactate 0.7 FiO2 21.0 Potassium 3.9 Carbon Dioxide 26 Anion Gap 13 BUN 7 Creatinine 0.6 L Est GFR ( Amer) > 60 Est GFR (Non-Af Amer) > 60 Random Glucose 82 Calcium 9.0 Phosphorus 3.2 Magnesium 2.4 H Total Bilirubin 0.5 AST 51 H D ALT 27 Alkaline Phosphatase 116 Total Protein 8.0 Albumin 4.1 Globulin 3.9 Albumin/Globulin Ratio 1.1 Venous Blood Potassium 3.8 10/11/18 10/11/18 13:20 21:30 WBC RBC Hgb Hct MCV MCH MCHC RDW Plt Count MPV Neut % (Auto) Lymph % (Auto) [place] % (Auto) Eos % (Auto) Baso % (Auto) Neut # (Auto) Lymph # (Auto) [place] # (Auto) Eos # (Auto) Baso # (Auto) PT 11.6 INR 1.0 APTT 32.1 D-Dimer, Quantitative 798 H pO2 VBG pH VBG pCO2 VBG HCO3 VBG Total CO2 VBG O2 Sat (Calc) VBG Base Excess VBG Potassium Sodium Chloride Glucose Lactate FiO2 Potassium Carbon Dioxide Anion Gap BUN Creatinine Est GFR ( Amer) Est GFR (Non-Af Amer) Random Glucose Calcium Phosphorus Magnesium Total Bilirubin AST ALT Alkaline Phosphatase Total Protein Albumin Globulin Albumin/Globulin Ratio Venous Blood Potassium Attending/Attestation - Attestation I have personally seen and examined this patient.: Yes I have fully participated in the care of the patient.: Yes I have reviewed all pertinent clinical information: Yes Notes (Text): 10/12/18 09:16 Patient seen and examined with resident. Case discussed and agreed with assessment and plan of management.
[2018-10-11] MEDS ORDERED: Clindamycin in D5W 300 MG/50 ML BAG IVPB SCH ×2 (22:00→23:00)
[2018-10-11] MEDS: Clindamycin in NS 300 MG/50 ML BAG IVPB SCH (23:55)
[2018-10-12] MEDS: Clindamycin in NS 300 MG/50 ML BAG IVPB SCH ×2 (04:21→10:32)
[2018-10-12] MEDS: Sodium Chloride 0.9% 1,000 ML IV SCH ×3 (05:51→09:16)
[2018-10-12 08:30] VITALS: BP 103/68; PULSE 67; RESP 20; TEMP 97.9; O2SAT 98
[2018-10-12] MEDS ORDERED: Enoxaparin 40 mg Syringe SC SCH (09:00)
[2018-10-12] MEDS ORDERED: Pantoprazole 40 mg EC Tab PO SCH (09:00)
--- NOTE | 2018-10-12 10:28 | CP.PCM.DIS ---
<Nikos Travis - Last Filed: 10/12/18 10:23> Provider - Provider Date of Admission: 10/11/18 17:30 Attending physician: Leonid Ferrara MD Time Spent in preparation of Discharge (in minutes): 20 Diagnosis - Discharge Diagnosis (1) Cellulitis Status: Acute Hospital Course - Lab Results Lab Results: Most Recent Lab Values WBC 5.4 K/uL (4.8-10.8) 10/11/18 13:20 RBC 3.73 Mil/uL (3.80-5.20) L 10/11/18 13:20 Hgb 12.0 g/dL (12.0-16.0) 10/11/18 13:20 Hct 36.0 % (34.0-47.0) 10/11/18 13:20 MCV 96.4 fl (81.0-99.0) 10/11/18 13:20 MCH 32.2 pg (27.0-31.0) H 10/11/18 13:20 MCHC 33.4 g/dL (33.0-37.0) 10/11/18 13:20 RDW 13.9 % (11.5-14.5) 10/11/18 13:20 Plt Count 194 K/uL (130-400) 10/11/18 13:20 MPV 10.7 fl (7.2-11.7) 10/11/18 13:20 Neut % (Auto) 62.9 % (50.0-75.0) 10/11/18 13:20 Lymph % (Auto) 27.6 % (20.0-40.0) 10/11/18 13:20 [place] % (Auto) 7.5 % (0.0-10.0) 10/11/18 13:20 Eos % (Auto) 1.6 % (0.0-4.0) 10/11/18 13:20 Baso % (Auto) 0.4 % (0.0-2.0) 10/11/18 13:20 Neut # (Auto) 3.4 K/uL (1.8-7.0) 10/11/18 13:20 Lymph # (Auto) 1.5 K/uL (1.0-4.3) 10/11/18 13:20 [place] # (Auto) 0.4 K/uL (0.0-0.8) 10/11/18 13:20 Eos # (Auto) 0.1 K/uL (0.0-0.7) 10/11/18 13:20 Baso # (Auto) 0.0 K/uL (0.0-0.2) 10/11/18 13:20 PT 11.6 Seconds (9.8-13.1) 10/11/18 13:20 INR 1.0 10/11/18 13:20 APTT 32.1 Seconds (25.6-37.1) 10/11/18 13:20 D-Dimer, Quantitative 798 ng/mlDDU (0-230) H 10/11/18 21:30 pO2 23 mm/Hg (30-55) L 10/11/18 13:18 VBG pH 7.35 (7.32-7.43) 10/11/18 13:18 VBG pCO2 49 mmHg (40-60) 10/11/18 13:18 VBG HCO3 23.6 mmol/L 10/11/18 13:18 VBG Total CO2 28.6 mmol/L (22-28) H 10/11/18 13:18 VBG O2 Sat (Calc) 40.9 % (40-65) 10/11/18 13:18 VBG Base Excess 0.6 mmol/L (0.0-2.0) 10/11/18 13:18 VBG Potassium 3.8 mmol/L (3.6-5.2) 10/11/18 13:18 Sodium 139.0 mmol/L (132-148) 10/11/18 13:18 Chloride 107.0 mmol/L (98-107) 10/11/18 13:18 Glucose 82 mg/dL (65-105) 10/11/18 13:18 Lactate 0.7 mmol/L (0.7-2.1) 10/11/18 13:18 FiO2 21.0 % 10/11/18 13:18 Sodium 141 mmol/l (132-148) 10/11/18 13:20 Potassium 3.9 MMOL/L (3.6-5.0) 10/11/18 13:20 Chloride 106 mmol/L (98-107) 10/11/18 13:20 Carbon Dioxide 26 mmol/L (22-30) 10/11/18 13:20 Anion Gap 13 (10-20) 10/11/18 13:20 BUN 7 mg/dl (7-17) 10/11/18 13:20 Creatinine 0.6 mg/dl (0.7-1.2) L 10/11/18 13:20 Est GFR ( Amer) > 60 10/11/18 13:20 Est GFR (Non-Af Amer) > 60 10/11/18 13:20 Random Glucose 82 mg/dL (65-105) 10/11/18 13:20 Calcium 9.0 mg/dL (8.4-10.2) 10/11/18 13:20 Phosphorus 3.2 mg/dl (2.5-4.5) 10/11/18 13:20 Magnesium 2.4 MG/DL (1.6-2.3) H 10/11/18 13:20 Total Bilirubin 0.5 mg/dl (0.2-1.3) 10/11/18 13:20 AST 51 U/L (14-36) H D 10/11/18 13:20 ALT 27 U/L (9-52) 10/11/18 13:20 Alkaline Phosphatase 116 U/L (38-126) 10/11/18 13:20 Total Protein 8.0 G/DL (6.3-8.2) 10/11/18 13:20 Albumin 4.1 g/dL (3.5-5.0) 10/11/18 13:20 Globulin 3.9 gm/dL (2.2-3.9) 10/11/18 13:20 Albumin/Globulin Ratio 1.1 (1.0-2.1) 10/11/18 13:20 Venous Blood Potassium 3.8 mmol/L (3.6-5.2) 10/11/18 13:18 - Hospital Course Hospital Course: 58 yo female with PMH of reflex sympathetic dystrophy, presented to ED with complaint of left leg pain/redness. Patient was admitted for evaluation DVT vs Cellulites. during her stay in the ED patient was offered LLE US to evaluate for DVT but patient refused, patient educated about the importance of the test and still refused due to discomfort of the test, patient was offered pain medication and refused all medication. Otherwise patient denies chest pain sob, abd pain diarrhea or constipation. Patient was seen and examined today morning. Patient does not want to be checked by US, or recieve any pain medication and prefer to go home. Patient was explained that this could be dvt or cellulites and will be treated for cellulites since the redness is mostly near her ankle rather than her calf. Patient was advised to return to ER if she have SOB, chest pain, dyspnea, dizziness, or any alarming symptoms. Patient understand and agree with plan Patient will be discharged on Clinda and propiotic. Patient should follow PCP in 2-3 days Discharge Exam - Head Exam Head Exam: NORMAL INSPECTION - Eye Exam Eye Exam: EOMI, Normal appearance, PERRL Pupil Exam: NORMAL ACCOMODATION, PERRL - Respiratory Exam Respiratory Exam: Clear to PA & Lateral, NORMAL BREATHING PATTERN, UNREMARKABLE - Cardiovascular Exam Cardiovascular Exam: REGULAR RHYTHM, +S1, +S2 - GI/Abdominal Exam GI & Abdominal Exam: Normal Bowel Sounds, Unremarkable - Extremities Exam Additional comments: No calf tenderness noted, there is redness around the ankle possible cellulites or venous insufficiency - Neurological Exam Neurological exam: Alert, CN II-XII Intact, Oriented x3 - Psychiatric Exam Psychiatric exam: Normal Affect, Normal Mood Discharge Plan - Discharge Medications Prescriptions: Clindamycin [Cleocin] 150 mg PO Q12H #14 cap Lactobacillus Acidophilus [Acidophilus Lactobacilli] 1 each PO DAILY #7 capsule - Follow Up Plan Condition: FAIR Disposition: HOME/ ROUTINE <Leonid Ferrara - Last Filed: 10/12/18 11:37> Provider - Provider Date of Admission: 10/11/18 17:30 Attending physician: Leonid Ferrara MD Hospital Course - Lab Results Lab Results: Most Recent Lab Values WBC 4.0 K/uL (4.8-10.8) L 10/12/18 10:40 RBC 3.76 Mil/uL (3.80-5.20) L 10/12/18 10:40 Hgb 12.0 g/dL (12.0-16.0) 10/12/18 10:40 Hct 36.1 % (34.0-47.0) 10/12/18 10:40 MCV 96.0 fl (81.0-99.0) 10/12/18 10:40 MCH 32.0 pg (27.0-31.0) H 10/12/18 10:40 MCHC 33.3 g/dL (33.0-37.0) 10/12/18 10:40 RDW 13.7 % (11.5-14.5) 10/12/18 10:40 Plt Count 184 K/uL (130-400) 10/12/18 10:40 MPV 10.8 fl (7.2-11.7) 10/12/18 10:40 Neut % (Auto) 58.6 % (50.0-75.0) 10/12/18 10:40 Lymph % (Auto) 29.7 % (20.0-40.0) 10/12/18 10:40 [place] % (Auto) 9.8 % (0.0-10.0) 10/12/18 10:40 Eos % (Auto) 1.6 % (0.0-4.0) 10/12/18 10:40 Baso % (Auto) 0.3 % (0.0-2.0) 10/12/18 10:40 Neut # (Auto) 2.3 K/uL (1.8-7.0) 10/12/18 10:40 Lymph # (Auto) 1.2 K/uL (1.0-4.3) 10/12/18 10:40 [place] # (Auto) 0.4 K/uL (0.0-0.8) 10/12/18 10:40 Eos # (Auto) 0.1 K/uL (0.0-0.7) 10/12/18 10:40 Baso # (Auto) 0.0 K/uL (0.0-0.2) 10/12/18 10:40 PT 11.6 Seconds (9.8-13.1) 10/11/18 13:20 INR 1.0 10/11/18 13:20 APTT 32.1 Seconds (25.6-37.1) 10/11/18 13:20 D-Dimer, Quantitative 798 ng/mlDDU (0-230) H 10/11/18 21:30 pO2 23 mm/Hg (30-55) L 10/11/18 13:18 VBG pH 7.35 (7.32-7.43) 10/11/18 13:18 VBG pCO2 49 mmHg (40-60) 10/11/18 13:18 VBG HCO3 23.6 mmol/L 10/11/18 13:18 VBG Total CO2 28.6 mmol/L (22-28) H 10/11/18 13:18 VBG O2 Sat (Calc) 40.9 % (40-65) 10/11/18 13:18 VBG Base Excess 0.6 mmol/L (0.0-2.0) 10/11/18 13:18 VBG Potassium 3.8 mmol/L (3.6-5.2) 10/11/18 13:18 Sodium 139.0 mmol/L (132-148) 10/11/18 13:18 Chloride 107.0 mmol/L (98-107) 10/11/18 13:18 Glucose 82 mg/dL (65-105) 10/11/18 13:18 Lactate 0.7 mmol/L (0.7-2.1) 10/11/18 13:18 FiO2 21.0 % 10/11/18 13:18 Sodium 142 mmol/l (132-148) 10/12/18 10:40 Potassium 3.6 MMOL/L (3.6-5.0) 10/12/18 10:40 Chloride 108 mmol/L (98-107) H 10/12/18 10:40 Carbon Dioxide 25 mmol/L (22-30) 10/12/18 10:40 Anion Gap 13 (10-20) 10/12/18 10:40 BUN 6 mg/dl (7-17) L 10/12/18 10:40 Creatinine 0.6 mg/dl (0.7-1.2) L 10/12/18 10:40 Est GFR ( Amer) > 60 10/12/18 10:40 Est GFR (Non-Af Amer) > 60 10/12/18 10:40 Random Glucose 87 mg/dL (65-105) 10/12/18 10:40 Calcium 8.5 mg/dL (8.4-10.2) 10/12/18 10:40 Phosphorus 3.2 mg/dl (2.5-4.5) 10/11/18 13:20 Magnesium 2.4 MG/DL (1.6-2.3) H 10/11/18 13:20 Total Bilirubin 0.5 mg/dl (0.2-1.3) 10/11/18 13:20 AST 51 U/L (14-36) H D 10/11/18 13:20 ALT 27 U/L (9-52) 10/11/18 13:20 Alkaline Phosphatase 116 U/L (38-126) 10/11/18 13:20 Total Protein 8.0 G/DL (6.3-8.2) 10/11/18 13:20 Albumin 4.1 g/dL (3.5-5.0) 10/11/18 13:20 Globulin 3.9 gm/dL (2.2-3.9) 10/11/18 13:20 Albumin/Globulin Ratio 1.1 (1.0-2.1) 10/11/18 13:20 Venous Blood Potassium 3.8 mmol/L (3.6-5.2) 10/11/18 13:18 Attending/Attestation - Attestation I have personally seen and examined this patient.: Yes I have fully participated in the care of the patient.: Yes I have reviewed all pertinent clinical information, including history, physical exam and plan: Yes Notes (Text): 10/12/18 11:35 Patient seen and examined with resident. Case discussed and agreed with assessment. Patient refused further study to rule out presence of DVT even though explained that it is dangerous to her if she has it. Patient discharged in stable condition.
[2018-10-12 10:49] LABS: BASO % 0.3 % (0.0-2.0); EOS # 0.1 K/uL (0.0-0.7); EOS % 1.6 % (0.0-4.0); LYMPH # 1.2 K/uL (1.0-4.3); LYMPH % 29.7 % (20.0-40.0); MEAN CORPUSCULAR HGB CONC 33.3 g/dL (33.0-37.0); MEAN PLATELET VOLUME 10.8 fl (7.2-11.7); MONO # 0.4 K/uL (0.0-0.8); MONO % 9.8 % (0.0-10.0); NEUT # 2.3 K/uL (1.8-7.0); NEUT % 58.6 % (50.0-75.0); NRBC % 0.1 % (0.0-0.0); RBC 3.76 Mil/uL (3.80-5.20); RED CELL DISTRIBUTION WIDTH 13.7 % (11.5-14.5)
[2018-10-12 10:59] LABS: BLOOD UREA NITROGEN 6 mg/dl (7-17); CALCIUM 8.5 mg/dL (8.4-10.2); GFR NON-AFRICAN AMERICAN > 60
--- NOTE | 2018-10-12 16:44 | CARD ---
APPROVED REPORT Date of service: 10/11/2018 EKG Measurement Heart [id number] <Conclusion> Normal sinus rhythm Normal ECG
== END 2018-10-12 14:14 | disposition home or self-care (01) ==
LOC: H.ER 12:23 → INTOOBSV 17:30 → H.ERHOLD 17:30 → H.MEDSURG1 22:45
DX: L03.116 Cellulitis of left lower limb (principal); Z86.718 Personal history of other venous thrombosis and embolism; Z79.02 Long term (current) use of antithrombotics/antiplatelets; G90.50 Complex regional pain syndrome I, unspecified
CPT/HCPCS: 36415; 73590; 80048; 80053; 82803; 83735; 84100; 85025; 85378; 85610; 85730; 87040; 93005; 96365; 99285; G0378; J1650; J2270; J7030

== ENCOUNTER 2018-10-17 11:33 | Emergency (ER) | payer OTHER ==
[2018-10-17 11:40] VITALS: BMI 31.9
--- NOTE | 2018-10-17 13:25 | ED PDOC ---
Lower Extremity Pain/Injury Time Seen by Provider: 10/17/18 12:47 Chief Complaint (Nursing): Lower Extremity Problem/Injury Chief Complaint (Provider): Left leg cellulitis History Per: Patient History/Exam Limitations: no limitations Current Symptoms Are (Timing): Still Present Additional Complaint(s): 58 year old female, with a recent diagnosis of left leg cellulitis started on Clindamycin, presents with worsening pain, swelling, and spreading of redness. Patient states wound has been oozing. Denies trauma, fever, or other complaints. PMD: none Past Medical History Reviewed: Historical Data, Nursing Documentation, Vital Signs Vital Signs: Last Vital Signs Temp 97.9 F 10/17/18 11:41 Pulse 63 10/17/18 11:41 Resp 20 10/17/18 11:41 BP 114/61 10/17/18 11:41 Pulse Ox 99 10/17/18 11:41 - Medical History PMH: Deep Vein Thrombosis Denies: HIV, Chronic Kidney Disease - Surgical History Surgical History: No Surg Hx - Family History Family History: States: Unknown Family Hx - Home Medications Home Medications: Ambulatory Orders Medication Instructions Recorded Pregabalin [Lyrica] 150 mg PO DAILY 08/17/18 Lactobacillus Acidophilus 1 each PO DAILY #7 capsule 10/12/18 [Acidophilus Lactobacilli] Amoxicillin/Clavulanate [Augmentin 1 tab PO BID #20 tab 10/17/18 875 MG-125 MG] Clopidogrel [Plavix] 75 mg PO DAILY 10/24/18 - Allergies Allergies/Adverse Reactions: Allergies Allergy/AdvReac Type Severity Reaction Status Date / Time aspirin Allergy REDNESS Verified 10/11/18 12:37 cefazolin Allergy ITCHING Verified 10/11/18 12:37 Review of Systems ROS Statement: Except As Marked, All Systems Reviewed And Found Negative Constitutional: Negative for: Fever Musculoskeletal: Negative for: Other (trauma) Skin: Positive for: Other (Redness, swelling, and pain to left leg ) Physical Exam - Reviewed Nursing Documentation Reviewed: Yes Vital Signs Reviewed: Yes - Physical Exam Appears: Positive for: No Acute Distress Head Exam: Positive for: ATRAUMATIC, NORMOCEPHALIC Skin: Positive for: Normal Color, Warm, Dry Eye Exam: Positive for: Normal appearance Neck: Positive for: Normal, Painless ROM Cardiovascular/Chest: Positive for: Regular Rate, Rhythm Respiratory: Positive for: Normal Breath Sounds. Negative for: Wheezing, Respiratory Distress Extremity: Positive for: Other (Left leg: Reddish and brownish discoloration to lateral left leg with streaking extending proximally; warmth; tenderness to palpation; swelling of lateral left foot) Neurological/Psych: Positive for: Awake, Alert, Normal Tone - Laboratory Results Result Diagrams: 10/17/18 13:15 10/17/18 13:15 - ECG O2 Sat by Pulse Oximetry: 99 (RA) Pulse Ox Interpretation: Normal Medical Decision Making Medical Decision Making: Initial Impression: workup for worsening cellulitis Initial Plan: --Labs --Blood culture --X-ray of distal left leg --Possible IV antibiotics --Reassess pt Scribe Attestation: Documented by Ron Moore acting as a scribe for Dina Orellana MD. Provider Scribe Attestation: All medical record entries made by the Scribe were at my direction and personally dictated by me. I have reviewed the chart and agree that the record accurately reflects my personal performance of the history, physical exam, medical decision making, and the department course for this patient. I have also personally directed, reviewed, and agree with the discharge instructions and disposition. Disposition - Clinical Impression Clinical Impression: Cellulitis - Disposition Referrals: [facility] [Outside] Disposition Time: 14:46 Condition: STABLE Additional Instructions: Take antibiotics as prescribed. 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 Return to the emergency department if you develop fever, spreading of infection, or other new symptoms. Prescriptions: Amoxicillin/Clavulanate [Augmentin 875 MG-125 MG] 1 tab PO BID #20 tab Instructions: Cellulitis and Erysipelas (Skin Infections) Forms: [email or web address] (Slovenian) Print Language: ITALIAN
[2018-10-17 13:44] LABS: BLOOD UREA NITROGEN 8 mg/dl (7-17); CALCIUM 8.9 mg/dL (8.4-10.2); GFR NON-AFRICAN AMERICAN > 60
[2018-10-17 13:45] LABS: BASO % 0.3 % (0.0-2.0); EOS # 0.1 K/uL (0.0-0.7); EOS % 1.3 % (0.0-4.0); HEMOGLOBIN 12.6 g/dL (12.0-16.0); LYMPH % 33.6 % (20.0-40.0); MEAN CELL VOLUME 96.7 fl (81.0-99.0); MEAN CORPUSCULAR HEMOGLOBIN 32.4 pg (27.0-31.0); MEAN CORPUSCULAR HGB CONC 33.6 g/dL (33.0-37.0); MEAN PLATELET VOLUME 10.6 fl (7.2-11.7); MONO # 0.5 K/uL (0.0-0.8); MONO % 7.4 % (0.0-10.0); NEUT # 3.5 K/uL (1.8-7.0); NEUT % 57.4 % (50.0-75.0); NRBC % 0.1 % (0.0-0.0); RBC 3.89 Mil/uL (3.80-5.20); RED CELL DISTRIBUTION WIDTH 13.7 % (11.5-14.5); WHITE BLOOD COUNT 6.1 K/uL (4.8-10.8)
[2018-10-17 15:20] VITALS: BP 126/67; PULSE 66; RESP 16; TEMP 98.1
[2018-10-26 16:06] VITALS: O2SAT 99
== END 2018-10-17 15:15 | disposition home or self-care (01) ==
LOC: H.ER 11:33
DX: L03.116 Cellulitis of left lower limb (principal); Z86.718 Personal history of other venous thrombosis and embolism; Z88.1 Allergy status to other antibiotic agents
CPT/HCPCS: 80048; 85025; 87040; 96374; 99284; J1885

== ENCOUNTER 2018-10-24 11:46 | Emergency (ER) | payer OTHER ==
[2018-10-24 11:46] VITALS: BMI 31.9
[2018-10-24 11:57] VITALS: TEMP 98.2; O2SAT 100
[2018-10-24] MEDS ORDERED: Sodium Chloride 0.9% 1,000 ML IV ONE (12:42)
[2018-10-24] MEDS ORDERED: Clindamycin 600mg/50ml D5W 600 MG/50 ML VIAL IVPB STA (12:43)
--- NOTE | 2018-10-24 13:05 | ED PDOC ---
Lower Extremity Pain/Injury Time Seen by Provider: 10/24/18 12:21 Chief Complaint (Nursing): Lower Extremity Problem/Injury Chief Complaint (Provider): Lower Extremity Problem/Injury History Per: Patient, Sprayer Hand (DAINA #[id number]) Onset/Duration Of Symptoms: Persistent (x15 days) Current Symptoms Are (Timing): Still Present Additional Complaint(s): 58 year old female arrives to the emergency department with complaints of persistent cellulitis to left, lower extremity for the past 15 days. Patient was initially admitted under 24 hours observation in hospital on 10/11/18 for symptoms then discharged with Clindamycin. She returned to ED on 10/17/18 when symptoms subjectively worsened and was then discharged with Augmentin. Patient returns today for further evaluation. Upon arrival, she is requesting to see an infectious disease doctor. Patient states she has not followed-up with spec ialists as recommended from previous visits because "it's the same problem". Denies fever/chills. Patient takes her friend's Lyrica as needed for pain, last dose this morning. PCP: none provided Past Medical History Reviewed: Historical Data, Nursing Documentation, Vital Signs Vital Signs: Last Vital Signs Temp 98.2 F 10/24/18 11:53 Pulse 88 10/24/18 11:53 Resp 19 10/24/18 11:53 BP Pulse Ox 100 10/24/18 11:53 - Medical History PMH: Deep Vein Thrombosis Other PMH: reflex sympathetic dystrophy - Surgical History Other surgeries: hardware to left lower extremity - Family History Family History: States: Unknown Family Hx - Home Medications Home Medications: Ambulatory Orders Medication Instructions Recorded Pregabalin [Lyrica] 150 mg PO DAILY 08/17/18 Lactobacillus Acidophilus 1 each PO DAILY #7 capsule 10/12/18 [Acidophilus Lactobacilli] Amoxicillin/Clavulanate [Augmentin 1 tab PO BID #20 tab 10/17/18 875 MG-125 MG] Clopidogrel [Plavix] 75 mg PO DAILY 10/24/18 - Allergies Allergies/Adverse Reactions: Allergies Allergy/AdvReac Type Severity Reaction Status Date / Time aspirin Allergy REDNESS Verified 10/11/18 12:37 cefazolin Allergy ITCHING Verified 10/11/18 12:37 Review of Systems ROS Statement: Except As Marked, All Systems Reviewed And Found Negative Musculoskeletal: Positive for: Other (cellulitis of LLE) Physical Exam - Reviewed Nursing Documentation Reviewed: Yes Vital Signs Reviewed: Yes - Physical Exam Comments: GENERAL APPEARANCE: Patient is awake, alert, oriented x 3, in no acute distress. Resting comfortably. Skin: (+)warm and dry. (+)Lateral aspect of mid left lower extremity with erythema, warmth, and tenderness (-) open wounds, (-) drainage, (-) fluctuance (-) induration. Decreased ROM noted throughout entire lower extremity which patient states is baseline secondary to chronic pain (?) calf tenderness, (-) pedal edema, (-) palpable deformity. Sensation intact throughout. (+) palpable distal pulses (+) venous stasis dermatitis Neck: Supple, FROM ENT: Mucus membranes moist. Airway patent, (-) stridor. Pulmonary: lungs clear to auscultation bilaterally; no rhonchi, no wheezing, no rales. Cardiac: regular rate and rhythm Abdomen: soft, nontender (-) distention - Laboratory Results Result Diagrams: 10/24/18 13:28 10/24/18 13:28 - ECG O2 Sat by Pulse Oximetry: 100 (RA) Pulse Ox Interpretation: Normal Medical Decision Making Medical Decision Making: Initial Impression: Concern for cellulitis of lower extremity; acute on chronic neuropathic pain; r/o DVT Initial Plan: * CBC * CMP * Lactic acid * Cleocin IVPB 600mg * IV fluid 1L NS * IV access * Tylenol PO (refused by patient) * Ultram PO (refused by patient) * Blood culture x2 --XR tibia/fibula (10/11/18) reviewed: FINDINGS: BONES: No evidence of acute displaced fracture nor dislocation. Questionable old healed fracture deformity distal left fibula JOINT SPACES: Mild degenerative osteoarthritis tibiotalar articulation. OTHER FINDINGS: No subcutaneous emphysema is identified IMPRESSION: No evidence of acute displaced fracture nor dislocation. Questionable old healed fracture deformity distal left fibula no definitive cortical destructive changes. Mild degenerative osteoarthritis tibiotalar articulation. Time: 1310 --Patient refused US evaluation when recommended by provider on multiple occasions. Time: 1330 --Patient refused pain control medications (Tylenol and Ultram). Patient requesting to see ED attending. --Case discussed with ED MD Caba who is agreeable to evaluation. Time: 1400 --Patient seen ambulating to and from ED restroom with walker without difficulty. Time: 1420 --Dr Caba at bedside. --Labs reviewed and grossly unremarkable. No leukocytosis. No elevation of lactic acid. Time: 1440 --Per discussion with Dr Caba, patient to be admitted to hospitalist for intractable pain, cellulitis of lower extremity. Consult placed to hospitalist, Dr Ferrara. Time: 1540 --Dr Ferrara at bedside. Arrangements made for admission to med/surg observation per Dr Ferrara. Vitals stable. Patient agreeable to admission. Time: 1600 Family practice resident at bedside. Time: [address] Ferrara, patient is not to be admitted given her refusal for medication and U/S evaluation. Patient requesting to speak to director. Dr Nicholson at bedside. Time: 1700 Using [employer] pool nurse [id number], Dr Nicholson (ED director) had extensive conversation with patient. Patient requesting to sign out of ED AMA at this time. Patient refuses further care, evaluation or treatment in the ER. Patient informed of the reasons for the following and planned treatment, which patient understands, however still refuses. Patient informed of the risk and benefits of treatment. Informed that the risk could include worsening of current conditions, undiagnosed conditions, disability or even . Patient understands the following risk and the benefits of treatment. Patient has the capacity to make decisions and still refuses treatment by RN, PA and ER MD. Patient encouraged to return to the ER at any time and to follow up with pmd. Scribe Attestation: Documented by Louise Monroy, acting as a scribe for Dina Barcenas PA-C. Provider Scribe Attestation: All medical record entries made by the Scribe were at my direction and personally dictated by me. I have reviewed the chart and agree that the record accurately reflects my personal performance of the history, physical exam, medical decision making, and the department course for this patient. I have also personally directed, reviewed, and agree with the discharge instructions and disposition. Scribe Attestation: Documented by Vickie Bustamante, acting as a scribe for Dina Barcenas PA-C. Provider Scribe Attestation: All medical record entries made by the Scribe were at my direction and personally dictated by me. I have reviewed the chart and agree that the record accurately reflects my personal performance of the history, physical exam, medical decision making, and the department course for this patient. I have also personally directed, reviewed, and agree with the discharge instructions and disposition. Disposition - Clinical Impression Clinical Impression: Intractable neuropathic pain of lower extremity, Cellulitis of lower extremity, Left against medical advice - Patient ED Disposition Is Patient to be Admitted: No Discussed With : Leonid Ferrara Doctor Will See Patient In The: ED Counseled Patient/Family Regarding: Studies Performed, Diagnosis, Need For Followup - Disposition Disposition: Against Medical Advice Disposition Time: 17:00 Condition: STABLE Additional Instructions: La atencin mdica de emergencia que recibi hoy se dirigi a cruz sntomas agudos. Si le recetaron algn medicamento, llnelo y tmelo segn las indicaciones. Los sntomas pueden tardar varios pruitt en resolverse. Regrese al Departamento de Emergencias si cruz sntomas empeoran, no mejoran o si tiene otros problemas. Comunquese con chirinos mdico dentro de 2 pruitt para barbara nueva evaluacin y chino un seguimiento o llame a myra de los mdicos / clnicas a los que thakkar sido referido y que figuran en el formulario de Informacin de visita al paciente que se incluye en chirinos paquete de wally. Lleve todos los documentos que le entregaron al momento del wally junto con todos los medicamentos que est tomando para chirinos visita de seguimiento. Nuestro tratamiento no puede reemplazar la atencin mdica continua por parte de un proveedor de atencin primaria (PCP) fuera del departamento de emergencias. Instructions: Neuropathic Pain, Cellulitis (Skin Infection), Adult (DC), Leaving Against Medical Advice Forms: BESOS (Kinyarwanda) Print Language: TELUGU - POA Present On Arrival: None Results - Lab Results Lab Results: 10/24/18 10/24/18 10/24/18 13:28 13:28 13:28 WBC 6.2 RBC 3.92 Hgb 12.6 Hct 38.3 MCV 97.5 MCH 32.1 H MCHC 32.9 L RDW 14.1 Plt Count 175 MPV 11.2 Neut % (Auto) 61.0 Lymph % (Auto) 29.5 Gem % (Auto) 8.2 Eos % (Auto) 1.0 Baso % (Auto) 0.3 Neut # (Auto) 3.8 Lymph # (Auto) 1.8 Gem # (Auto) 0.5 Eos # (Auto) 0.1 Baso # (Auto) 0.0 Sodium 140 Potassium 4.0 Chloride 104 Carbon Dioxide 28 Anion Gap 12 BUN 8 Creatinine 0.7 Est GFR ( Amer) > 60 Est GFR (Non-Af Amer) > 60 Random Glucose 85 Lactic Acid 0.8 Calcium 8.9 Total Bilirubin 0.5 AST 31 ALT 28 Alkaline Phosphatase 117 Total Protein 8.3 H Albumin 4.3 Globulin 4.0 H Albumin/Globulin Ratio 1.1
[2018-10-24 14:02] LABS: BASO % 0.3 % (0.0-2.0); EOS # 0.1 K/uL (0.0-0.7); HEMOGLOBIN 12.6 g/dL (12.0-16.0); LYMPH # 1.8 K/uL (1.0-4.3); LYMPH % 29.5 % (20.0-40.0); MEAN CELL VOLUME 97.5 fl (81.0-99.0); MEAN CORPUSCULAR HEMOGLOBIN 32.1 pg (27.0-31.0); MEAN CORPUSCULAR HGB CONC 32.9 g/dL (33.0-37.0); MEAN PLATELET VOLUME 11.2 fl (7.2-11.7); MONO # 0.5 K/uL (0.0-0.8); MONO % 8.2 % (0.0-10.0); NEUT # 3.8 K/uL (1.8-7.0); NRBC % 0.1 % (0.0-0.0); RBC 3.92 Mil/uL (3.80-5.20); RED CELL DISTRIBUTION WIDTH 14.1 % (11.5-14.5); WHITE BLOOD COUNT 6.2 K/uL (4.8-10.8)
[2018-10-24 14:14] LABS: ALB/GLOB RATIO 1.1 (1.0-2.1); ALBUMIN 4.3 g/dL (3.5-5.0); ALT/SGPT 28 U/L (9-52); AST/SGOT 31 U/L (14-36); BLOOD UREA NITROGEN 8 mg/dl (7-17); CALCIUM 8.9 mg/dL (8.4-10.2); GFR NON-AFRICAN AMERICAN > 60
--- NOTE | 2018-10-24 16:57 | CP.PCM.CON ---
<Mihaela Wang - Last Filed: 10/24/18 17:55> History of Present Illness - History of Present Illness History of Present Illness: Patient seen bedside with Dr Ferrara, Dr Lares and Dr Bharat [id number] 58-year-old female with left lower extremity swelling, pain and erythema presented to ED. Known to our service from recent visits on October 11 and . Patient was evaluated for rule out cellulitis vs limb ischemia vs venous thrombus vs complex regional pain syndrome exacerbation, however adamantly refused the appropriate care of lower extremity U/S and demanded that she only needs antibiotics. Patient was afebrile, WBC wnl, lactic acid wnl, vitally stable. She complained of pain however declined all pain medication and continued to decline diagnostic testing and admission for observation - even after assessment and appropriate plan was explained in great detail. A&O x3, cleve tated disposition. After lengthy discussions explaining the risks of untreated cellulitis, limb ischemia, venous thrombus (including but not limited to loss of limb and potentially life) patient signed out AMA. Of note patient stopped plavix against recommendations after prior admission and takes Lyrica of an unknown quantity she gets from a friend for apparent reflex sympathetic dystrophy. Review of Systems - Review of Systems Systems not reviewed;Unavailable: Uncooperative Past Patient History - Infectious Disease Hx of Infectious Diseases: None - Past Medical History & Family History Past Medical History?: Yes - Past Social History Smoking Status: Never Smoked - CARDIAC Hx Cardiac Disorders: No - PULMONARY Hx Respiratory Disorders: No - NEUROLOGICAL Hx Neurological Disorder: Yes Other/Comment: Reflex sympathetic dystrophy - HEENT Hx HEENT Problems: No - RENAL Hx Chronic Kidney Disease: No - ENDOCRINE/METABOLIC Hx Endocrine Disorders: No - HEMATOLOGICAL/ONCOLOGICAL Hx Human Immunodeficiency Virus (HIV): No - INTEGUMENTARY Hx Dermatological Problems: No - MUSCULOSKELETAL/RHEUMATOLOGICAL Hx Musculoskeletal Disorders: No Hx Falls: Yes (06/2018) - GASTROINTESTINAL Hx Gastrointestinal Disorders: No - GENITOURINARY/GYNECOLOGICAL Hx Genitourinary Disorders: No - PSYCHIATRIC Hx Psychophysiologic Disorder: No Hx Substance Use: No - SURGICAL HISTORY Hx Surgeries: Yes Hx Orthopedic Surgery: Yes (B/L LE when 13 yrs old) Other/Comment: "bone surgery" within b/l lower extremities when in 2006, left leg fracture when 13 years old - ANESTHESIA Hx Anesthesia: Yes Hx Anesthesia Reactions: No Hx Malignant Hyperthermia: No Meds Allergies/Adverse Reactions: Allergies Allergy/AdvReac Type Severity Reaction Status Date / Time aspirin Allergy REDNESS Verified 10/11/18 12:37 cefazolin Allergy ITCHING Verified 10/11/18 12:37 Physical Exam - Constitutional Appears: Agitated - Respiratory Exam Respiratory Exam: NORMAL BREATHING PATTERN. absent: Respiratory Distress - Extremities Exam Additional comments: Left lower extremity: calf swollen and erythmatous, very tender to palpation. Multiple varicosities noted on foot which was noted to be very pale. - Neurological Exam Neurological exam: Alert, Normal Gait, Oriented x3 - Psychiatric Exam Psychiatric exam: Agitated, Anxious Results - Vital Signs Recent Vital Signs: Last Vital Signs Temp 98.2 F 10/24/18 11:53 Pulse 88 10/24/18 11:53 Resp 19 10/24/18 11:53 BP Pulse Ox 100 10/24/18 16:35 - Labs Result Diagrams: 10/24/18 13:28 10/24/18 13:28 Labs: Laboratory Results - last 24 hr 10/24/18 10/24/18 10/24/18 13:28 13:28 13:28 WBC 6.2 RBC 3.92 Hgb 12.6 Hct 38.3 MCV 97.5 MCH 32.1 H MCHC 32.9 L RDW 14.1 Plt Count 175 MPV 11.2 Neut % (Auto) 61.0 Lymph % (Auto) 29.5 Whiteside % (Auto) 8.2 Eos % (Auto) 1.0 Baso % (Auto) 0.3 Neut # (Auto) 3.8 Lymph # (Auto) 1.8 Whiteside # (Auto) 0.5 Eos # (Auto) 0.1 Baso # (Auto) 0.0 Sodium 140 Potassium 4.0 Chloride 104 Carbon Dioxide 28 Anion Gap 12 BUN 8 Creatinine 0.7 Est GFR ( Amer) > 60 Est GFR (Non-Af Amer) > 60 Random Glucose 85 Lactic Acid 0.8 Calcium 8.9 Total Bilirubin 0.5 AST 31 ALT 28 Alkaline Phosphatase 117 Total Protein 8.3 H Albumin 4.3 Globulin 4.0 H Albumin/Globulin Ratio 1.1 <Ferrara,Leonid D - Last Filed: 10/25/18 09:32> Results - Vital Signs Recent Vital Signs: Last Vital Signs Temp 98.2 F 10/24/18 17:13 Pulse 80 10/24/18 17:13 Resp 18 10/24/18 17:13 BP 120/78 10/24/18 17:13 Pulse Ox 100 10/24/18 17:41 - Labs Result Diagrams: 10/24/18 13:28 10/24/18 13:28 Labs: Laboratory Results - last 24 hr 10/24/18 10/24/18 10/24/18 13:28 13:28 13:28 WBC 6.2 RBC 3.92 Hgb 12.6 Hct 38.3 MCV 97.5 MCH 32.1 H MCHC 32.9 L RDW 14.1 Plt Count 175 MPV 11.2 Neut % (Auto) 61.0 Lymph % (Auto) 29.5 Whiteside % (Auto) 8.2 Eos % (Auto) 1.0 Baso % (Auto) 0.3 Neut # (Auto) 3.8 Lymph # (Auto) 1.8 Whiteside # (Auto) 0.5 Eos # (Auto) 0.1 Baso # (Auto) 0.0 Sodium 140 Potassium 4.0 Chloride 104 Carbon Dioxide 28 Anion Gap 12 BUN 8 Creatinine 0.7 Est GFR ( Amer) > 60 Est GFR (Non-Af Amer) > 60 Random Glucose 85 Lactic Acid 0.8 Calcium 8.9 Total Bilirubin 0.5 AST 31 ALT 28 Alkaline Phosphatase 117 Total Protein 8.3 H Albumin 4.3 Globulin 4.0 H Albumin/Globulin Ratio 1.1 Attending/Attestation - Attestation I have personally seen and examined this patient.: Yes I have fully participated in the care of the patient.: Yes I have reviewed all pertinent clinical information: Yes Notes (Text): 10/25/18 09:23 Patient seen and examined with resident. Case discussed and agreed with assessment. Patient has been known to us from last admission. Patient was treate d at that time for presumptive diagnosis of cellulitis of the left leg. She came back claiming the swelling had not subsided with continued pain. There was no other sign of infection such as fever, chills and leukocytosis like the first time when she was admitted. Patient refused further studies such as venous doppler to rule out presence of DVT as well pain medications.. We informed her we can not treat her again with antibiotics if we are not certain that she has DVT. Patient became hysterical and decided to sign out AMA.
[2018-10-24 17:21] VITALS: BP 120/78; PULSE 80; RESP 18
== END 2018-10-24 17:21 | disposition home or self-care (01) ==
LOC: H.ER 11:46 → UNDOADMOB 16:00 → H.ERHOLD 16:00 → H.ER 17:21
DX: L03.116 Cellulitis of left lower limb (principal); G90.50 Complex regional pain syndrome I, unspecified; Z79.02 Long term (current) use of antithrombotics/antiplatelets; Z86.718 Personal history of other venous thrombosis and embolism; Z88.1 Allergy status to other antibiotic agents
CPT/HCPCS: 80053; 83605; 85025; 87040; 99284; J7040